=== PATIENT | female | born 1955 | race American Indian/Alaskan Native ===

== ENCOUNTER 2024-04-04 11:56 | Emergency (ER) | payer OTHER, SELFPAY ==
[2024-04-04 11:58] VITALS: BMI 26.5
[2024-04-04 12:05] VITALS: BP 134/88; PULSE 77; RESP 16; TEMP 36.9; O2SAT 96
--- NOTE | 2024-04-04 12:23 | XR_ITS ---
Examination: Fingers, left hand fourth and fifth fingers 3 views Technique: AP, oblique, lateral views left hand fourth and fifth fingers 3 views. Exam date and time: April 04, 2024 1255 hours INDICATIONS: Injury to the left hand fourth finger pain 4 days ago. FINDINGS: Prominent osteopenia 4 mm chip fracture volar base middle phalanx fourth digit without displacement IMPRESSION: 4 mm chip fracture volar base middle phalanx fourth digit
--- NOTE | 2024-04-04 12:23 | XR_ITS ---
Examination: Knee, left , 3 views Technique: Knee AP, lateral, oblique 3 views Date and time of exam: April 04, 2024 1255 hours INDICATIONS: Injury to the knee 4 days ago with knee pain. FINDINGS: Moderate osteopenia No fracture or dislocation Moderate knee effusion IMPRESSION: No fracture or dislocation
--- NOTE | 2024-04-04 13:45 | PD.EDLOWEX ---
Lower Extremity Injury RME/HPI General Chief Complaint: Extremity Injury, Lower Stated Complaint: L KNEE AND HAND PAIN S/P FALL Time Seen by Provider: 04/04/24 12:11 Source: patient Arrival date/time: 04/04/24 11:56 This is a 68y female here with co left knee pain and finger pain left hand. Reports that on thanksgiving, her plate fell out of her hand causing her to slip and subsequently fall onto to her left knee. Patient also contused her fourth and 5th digit of left hand. No other injuries reported. No loc, head or neck injuries. Limitations: no limitations Related Data Home Medications ?Medication ?Instructions ?Recorded ?Confirmed paroxetine HCl 40 mg tablet (Paxil) 40 mg PO QAM #0 tabs 12/12/13 11/22/23 ferrous sulfate 325 mg (65 mg 325 mg PO BID 08/12/23 11/22/23 iron) tablet metoprolol succinate 25 mg 25 mg PO DAILY 08/12/23 11/22/23 tablet,extended release 24 hr Previous Rx's ?Medication ?Instructions ?Recorded clopidogrel 75 mg tablet (Plavix) 75 mg PO QDAY #30 tabs 06/09/19 lisinopril 2.5 mg tablet 2.5 mg PO QDAY #30 tabs 06/09/19 metformin 500 mg tablet 500 mg PO BID #60 tabs 06/09/19 nitroglycerin 0.4 mg sublingual 0.4 mg buccal [id number] PRN chest 06/09/19 tablet pain #100 tabs aspirin 81 mg tablet,delayed 81 mg PO QDAY #30 tabs 11/23/23 release atorvastatin 80 mg tablet 80 mg PO HS 30 days #30 tabs 11/23/23 pantoprazole 40 mg tablet,delayed 40 mg PO QDAY #20 tabs 11/23/23 release Allergies Allergy/AdvReac Type Severity Reaction Status Date / Time No Known Drug Allergies Allergy Verified 11/21/23 23:56 Review of Systems Review of Systems Systems Reviewed: All systems reviewed, normal except as documented Narrative Review of Systems: Gen: No fever, no chills, no weight loss EYES: No discharge, no visual changes, no pain HEENT: No ear pain, no congestion, no sore throat PULM: No shortness of breath, no cough, no congestion CV: No chest pain, no dyspnea on exertion, no palpitations GI: No nausea, no vomiting, no diarrhea, no pain, no constipation : No frequency, no urgency,? no dysuria Musc/skel: No joint pain, no back pain Skin: No rash? Psyc: No hallucinations, no depression Heme/Lymph: No easy bleeding or bruising tendencies Neuro: No weakness, no headache ED Exam General Limitations: Present no limitations General appearance: Present alert and in no apparent distress Head Head exam: Present atraumatic Eye Eye exam: Present normal appearance, PERRL and EOMI ENT ENT exam: Present normal exam, normal oropharynx and mucous membranes moist Neck Neck exam: Present normal inspection, full ROM and trachea midline Chest Chest inspection: Present normal inspection and symmetric chest wall rise Respiratory Respiratory exam: Present normal lung sounds bilaterally Cardiovascular Cardiovascular exam: Present regular rate, normal rhythm and normal heart sounds Abdominal Exam Abdominal exam: Present soft and normal bowel sounds Extremities Exam Extremities exam: Present normal inspection and full ROM Back Exam Back exam: Present normal inspection and full ROM Neurological Exam Neurological exam: Present alert, oriented X3 and CN II-XII intact Psychiatric Psychiatric exam: Present normal affect and normal mood Skin Skin exam: Present warm, dry, intact and normal color Course Quality Measures none Orders Category Date Time Status XR finger LT min 2V Stat Exams 04/04/24 12:23 Completed XR knee LT 3V Stat Exams 04/04/24 12:23 Completed Vital Signs Vital signs: Vital Signs Temperature 98.5 F 04/04/24 12:05 Pulse Rate 77 04/04/24 12:05 Respiratory Rate 16 04/04/24 12:05 Blood Pressure 134/88 H 04/04/24 12:05 Pulse Oximetry (%) 96 04/04/24 12:05 Oxygen Delivery Method Room Air 04/04/24 12:05 Extremity Injury, Lower MDM Narrative MDM Narrative:: 68 y f evaluted for c/o slip and fall causing knee contusion and fracture of 4th digit left hand. Finger splints applied, patient wearing a knee brace. Advised to follow up with PCP for further fu ER precautions given. Patient data External records reviewed:: [facility] previous records Clinical information provided by:: patient Social determinants that could affect healthcare access:: none Patient has the following chronic illnesses:: no How is presenting disease/condition affected by chronic disease/condition?: no chronic disease Evaluation data The following diagnostics were reviewed and interpreted by me:: radiology exam(s) Lab and/or radiology exams considered but not ordered:: no Interpretation Summary: Examination: Knee, left , 3 views Technique: Knee AP, lateral, oblique 3 views Date and time of exam: April 04, 2024 1255 hours INDICATIONS: Injury to the knee 4 days ago with knee pain. FINDINGS: Moderate osteopenia No fracture or dislocation Moderate knee effusion IMPRESSION: No fracture or dislocation Examination: Fingers, left hand fourth and fifth fingers 3 views Technique: AP, oblique, lateral views left hand fourth and fifth fingers 3 views. Exam date and time: April 04, 2024 1255 hours INDICATIONS: Injury to the left hand fourth finger pain 4 days ago. FINDINGS: Prominent osteopenia 4 mm chip fracture volar base middle phalanx fourth digit without displacement IMPRESSION: 4 mm chip fracture volar base middle phalanx fourth digit Medications / Prescriptions Medications or Prescriptions considered but not ordered:: no Medication administrations:: no Consultations Consultation(s) initiated? (list below): No Diagnosis Extremity Injury, Lower Differential Diagnosis: ankle sprain and strain, acute internal derangement of knee, puncture wound of foot and other (finger sprain and knee pain) Most likely diagnosis given after review of the tests above:: Left knee sprain, finger fracture Admission Indicated Admission indicated?: not indicated Admission Request Was there a request for admission?: No Disposition Plan Disposition Plan: Discharge Discharge Attestation Discharge Attestation: The patient and all family members were given an opportunity to ask questions and understood the discharge instructions. Discharge instructions specifically effects, indications for sooner follow up or return to the emergency department, and the expected course of current diagnosis. Patient condition: Stable Discharge Plan Plan Patient Disposition: HOME (Self Care) Patient condition on transfer: Stable Prescriptions/Referrals Prescriptions/Med Rec: No Action paroxetine HCl [Paxil] 40 MG tablet 40 mg PO QAM Qty: 0 clopidogrel [Plavix] 75 mg Tablet 75 mg PO QDAY Qty: 30 0RF Hold Instructions: Resume on 08/13/23. nitroglycerin 0.4 mg tablet, sublingual 0.4 mg BUCCAL [id number] PRN (Reason: chest pain) Qty: 100 0RF Rx Instructions: Please seek immediate medical attention if no alleviation of chest pain. metformin 500 mg tablet 500 mg PO BID Qty: 60 0RF Hold Instructions: Resume on 04/12/24. lisinopril 2.5 mg tablet 2.5 mg PO QDAY Qty: 30 0RF atorvastatin 80 mg tablet 80 mg PO HS 30 Days Qty: 30 3RF aspirin 81 mg tablet,delayed release (DR/EC) 81 mg PO QDAY Qty: 30 3RF pantoprazole 40 mg tablet,delayed release (DR/EC) 40 mg PO QDAY Qty: 20 0RF ferrous sulfate 325 mg (65 mg iron) Tablet 325 mg PO BID metoprolol succinate 25 mg Tablet Extended Release 24 Hr 25 mg PO DAILY Referrals: Good Juarez MD [Primary Care Provider] - In 1 week Problem List Clinical Impression: Contusion of knee, left, Finger fracture, left, Fall from slipping Patient/Caregiver Discharge Instructions Discharge Activity: activity as tolerated Education Materials: ED Fracture, Finger, Closed, ED Knee Sprain Additional Instructions: - Is very important that you follow-up with your primary doctor in 48 hours for follow-up care. Your x-ray does demonstrate a fracture of your finger, keep the splint as directed. -Keep knee brace on. Return to the emergency department with any worsening symptoms change in condition. Print Language: Welsh Stand Alone Forms: Milady Award Info., Patient Portal Info Letter Attestation Attestation The patient was seen by the midlevel practitioner. I, the co-signing physician, was present during the entire ER visit. While I did not physically examine the patient, I was available for consultation as needed.
== END 2024-04-04 14:31 | disposition home or self-care (01) ==
PROVIDERS: Emergency Provider Emergency Medicine; PCP Internal Medicine
DX: S62.655A Nondisplaced fracture of middle phalanx of left ring finger, initial encounter for closed fracture (principal); S80.02XA Contusion of left knee, initial encounter; W01.0XXA Fall on same level from slipping, tripping and stumbling without subsequent striking against object, initial encounter
CPT/HCPCS: 73140; 73562; 99283

== ENCOUNTER → 2024-08-10 | Outpatient (CLI) | payer OTHER, SELFPAY ==
[2024-08-10 09:43] LABS: Cardiac Risk Estimate 3.1 RATIO (3.7-5.6); Cholesterol 153 mg/dL (132-200); HDL Cholesterol 50 mg/dL (40-60); LDL Cholesterol,Calculated 73 mg/dL (0-130); Triglycerides 152 mg/dL (30-150)
[2024-08-10 10:11] LABS: Vitamin B12 311 pg/mL (211-911); Vitamin D 25 Hydroxy Total 27.7 ng/mL (7.3-40.2)
== END | disposition home or self-care (01) ==
LOC: COPL 08:03
PROVIDERS: PCP Internal Medicine
DX: E11.42 Type 2 diabetes mellitus with diabetic polyneuropathy (principal)
CPT/HCPCS: 36415; 80061; 82306; 82607

== ENCOUNTER → 2024-08-24 | Outpatient (CLI) | payer OTHER, SELFPAY ==
[2024-08-24 09:36] LABS: Basophils # (Auto) 0.1 Thou/mm3 (0.0-0.2); Basophils % (Auto) 1 % (0-2.5); Eosinophils # (Auto) 0.8 Thou/mm3 (0.0-0.5); Eosinophils % (Auto) 10 % (0-10); Hematocrit 44.5 % (36.0-46.0); Immature Granulocytes % (Auto) 1 % (0-0); Immature Granulocytes Auto 0.05 Thou/mm3 (0.00-0.00); Lymphocytes # (Auto) 1.7 Thou/mm3 (1.0-4.8); Lymphocytes % (Auto) 21 % (10-50); Mean Corpuscular HGB Conc 33.7 g/dl (31.0-37.0); Mean Corpuscular Hemoglobin 28.5 pg (25.0-35.0); Mean Corpuscular Volume 84 fL (80-100); Monocytes # (Auto) 0.5 Thou/mm3 (0.0-0.8); Monocytes % (Auto) 6 % (0-12); Neutrophils % (Auto) 62 % (37-80); Nucleated Red Blood Cell % 0 /100 WBC (0); Platelet Count 308 Thou/mm3 (140-440); RDW Standard Deviation 42.5 fL (36.4-46.3); Red Blood Count 5.27 Miln/mm3 (4.00-5.20); White Blood Count 8.1 Thou/mm3 (3.6-11.0)
[2024-08-24 09:55] LABS: Alanine Aminotransferase 10 U/L (10-49); Albumin, Serum 4.2 gm/dL (3.4-4.8); Albumin/Globulin Ratio 1.8 (1.2-2.2); Alkaline Phosphatase 72 U/L (46-116); Anion Gap 8 (7-16); Aspartate Amino Transferase 15 U/L (0-34); BUN/Creatinine Ratio 14 Ratio (12-20); Bilirubin,Total 0.5 mg/dL (0.3-1.2); Blood Urea Nitrogen 10 mg/dL (9-23); Carbon Dioxide 27.4 mMol/L (20.0-31.0); Cardiac Risk Estimate 2.7 RATIO (3.7-5.6); Chloride 109 mMol/L (98-107); Cholesterol 142 mg/dL (132-200); Creatinine (Component) 0.7 mg/dL (0.6-1.3); Globulin 2.4 gm/dL (2.3-3.5); Glucose 136 mg/dL (74-106); HDL Cholesterol 52 mg/dL (40-60); LDL Cholesterol,Calculated 66 mg/dL (0-130); Osmolality,Calculated 287 (275-295); Potassium 3.8 mMol/L (3.4-5.1); Sodium 144 mMol/L (136-145); Thyroid Stimulating Hormone 1.14 uIU/mL (0.55-4.78); Total Protein 6.6 gm/dL (5.7-8.2); Triglycerides 120 mg/dL (30-150); eGFR > 60 See Note
[2024-08-24 09:56] LABS: Creatinine MALB Rnd Ur 67 mg/dL (30-125); Microalbumin Creat Ratio 10 mg/gCrea (<30); Microalbumin, Random Urine 7 mg/L (0-300)
[2024-08-24 10:22] LABS: Syphilis Nonreactive (Nonreactive)
[2024-08-24 10:26] LABS: Hepatitis A Antibody IgM Non Reactive (Non React); Hepatitis B Core Antibody IgM Non Reactive (Non React); Hepatitis B Surface Antigen Non Reactive (Non React); Hepatitis C Antibody Non Reactive (Non React)
[2024-08-24 16:43] LABS: Chlamydia trachomatis PCR Negative (Not Detect); Neisseria Gonorrhoeae DNA PCR Negative (Not Detect); Trichomonas Negative (Negative)
[2024-08-29 06:46] LABS: HIV Ag/Ab, 4th Gen NON-REACTIVE
== END | disposition home or self-care (01) ==
LOC: COPL 08:11
PROVIDERS: PCP Internal Medicine
DX: Z00.00 Encounter for general adult medical examination without abnormal findings (principal); E11.9 Type 2 diabetes mellitus without complications; Z11.3 Encounter for screening for infections with a predominantly sexual mode of transmission; Z11.59 Encounter for screening for other viral diseases; Z79.899 Other long term (current) drug therapy
CPT/HCPCS: 36415; 80053; 80061; 80074; 82043; 82570; 84443; 85025; 86780; 87389; 87491; 87591; 87661

== ENCOUNTER 2024-11-12 12:16 | Inpatient (IN) | payer OTHER, MEDICARE, SELFPAY ==
[2024-11-12] VITALS (7 sets, daily range): BP systolic 134–149; BP diastolic 89–114; PULSE 74–98; RESP 14–90; TEMP 36.2–36.9; O2SAT 92–100; BMI 29.5
--- NOTE | 2024-11-12 | XR_ITS ---
Examinations: MRI Brain without intravenous contrast. MRI brain with intravenous contrast MRA brain with intravenous contrast. MRA brain without intravenous contrast MRA neck with intravenous contrast Date and time of exam: November 12, 2024, 1557 hrs. Indications: Difficulty with balance, altered mental status, weakness in the left face and upper extremity today Technique: Multiple axial and sagittal images of the brain have been obtained Siemens high-resolution 1.5 Esther short bore scanner is utilized. Sagittal sections, T1-weighted, TR 500, TE 14 Axial sections proton density and T2-weighted, TR 3,000, TE 34, TR 3,000, TE 91 Inversion recovery axial images, TR 9,260, TE 111, TI 2,500 Diffusion weighted images, axial sections, TR 4,800, TE 128, B value 1,000 Axial sections, ADC map, TR 4,800, TE 128. Contrast images have been obtained post intravenous 13 cc Gadolinium. T1-weighted axial and coronal images post contrast have been obtained. Angiographic images of neck and brain are obtained pre and post contrast. 3-D post processing performed, including brain, extracranial neck arterial maximum intensity projections Findings: Sellaturcica is not enlarged. The optic chiasm and infundibular stalk are not remarkable. Prepontine and interpeduncular cisterns are not enlarged. No localized enlargement of the medulla or ion. Fourth ventricle and cerebellar tonsils normal in position. Subacute hemorrhage is not seen. Fourth ventricle is midline. Mass in the cerebellopontine angle region is not evident. 7th and 8th nerve complexes exhibits symmetry. Globes are symmetrical with no retro-orbital mass. Increased white matter signal prominent Diffusion-weighted images demonstrate5 mm focus of restricted diffusion in the right basal ganglia, diffusion image 13. Mass-effect upon the ventricular system is not identified. Abnormal contrast enhancement is not seen. MRA brain carotid images no significant carotid stenoses. Significant irregularity posterior cerebral artery branches Impression: 5 mm focus of restricted diffusion in the right basal ganglia without definite signal deficit on the ADC map, recommend consultation by neurology, correlation with clinical findings to assess whether this represents a small acute infarct
--- NOTE | 2024-11-12 12:19 | PD.EDNEURO ---
Neuro Symptoms Deficit-RME/HPI General Chief Complaint: Neuro Symptoms/Deficit Stated Complaint: POSSIBLE STROKE Time Seen by Provider: 11/12/24 12:22 Arrival date/time: 11/12/24 12:16 Limitations: no limitations RME / HPI RME / HPI Narrative: DR. ARMIJO MAIN ED EVALUATION: 69 year old female with past medical history significant for TIA 11/2023, hypertension, hyperlipidemia, DM 2, and CAD presents to the Emergency Department [facility] with complaints of facial droop and generalized weakness since 10 PM yesterday. Patient also had trouble standing/ keeping balance. No actual one-sided weakness. No other symptoms reported. Related Data Home Medications ?Medication ?Instructions ?Recorded ?Confirmed ferrous sulfate 325 mg (65 mg 325 mg PO BID 08/12/23 11/12/24 iron) tablet empagliflozin 10 mg tablet 10 mg PO QAM 11/12/24 11/12/24 (Jardiance) lisinopril 20 mg tablet 20 mg PO DAILY 11/12/24 11/12/24 metformin 1,000 mg tablet 1,000 mg PO BID 11/12/24 11/12/24 metoprolol succinate 50 mg 50 mg PO DAILY 11/12/24 11/12/24 tablet,extended release 24 hr paroxetine HCl 30 mg tablet 30 mg PO DAILY 11/12/24 11/12/24 Previous Rx's ?Medication ?Instructions ?Recorded clopidogrel 75 mg tablet (Plavix) 75 mg PO QDAY #30 tabs 06/09/19 nitroglycerin 0.4 mg sublingual 0.4 mg buccal [id number] PRN chest 06/09/19 tablet pain #100 tabs atorvastatin 80 mg tablet 80 mg PO HS 30 days #30 tabs 11/23/23 pantoprazole 40 mg tablet,delayed 40 mg PO QDAY #20 tabs 11/23/23 release Allergies Allergy/AdvReac Type Severity Reaction Status Date / Time No Known Drug Allergies Allergy Verified 11/12/24 12:46 Review of Systems Review of Systems Systems Reviewed: All systems reviewed, normal except as documented Past Medical History Past Medical History CARDIAC: Positive Cardiac Disorders, Myocardial Infarction (2022), Hypercholesterolemia, Cellulitis and Hypertension REPRODUCTIVE: Positive Previous Pregnancies (4 children) MUSCULOSKELETAL: Positive Musculoskeletal Disorders (broken right shoulder 2 years ago never had surgery) and Fractures ENDOCRINE: Positive Endocrine Disorders and Diabetes Mellitus Type 2 HEMATOLOGIC: Positive Blood Disorders and Anemia PSYCHO/SOCIAL: Positive Recreational Drug Use (cocaine, heroin, meth), Depression and Anxiety OTHER HISTORY: Positive Hospitalization, Falls, Blood Transfusions, MRSA, Chicken Pox, Measles, Mumps and Rubella ([place] Measles) Family History FAMILY HISTORY: Positive Family Psychiatric Problems (bipolar disorder (mom)), Family Cardiac Disorders (mom (heart attack)) and Family Surgery (heart surgery (mom)) Surgical History SURGICAL: Positive Coronary Stent (4 stents), Cardiac Catheterization and Section Social History SMOKING STATUS: Never smoker SECOND HAND EXPOSURE: Yes SUBSTANCE USE: does not use ALCOHOL: Never ED Exam General Limitations: Present no limitations General appearance: Present alert and in no apparent distress Head Head exam: Present atraumatic, normocephalic and normal inspection Eye Eye exam: Present normal appearance, PERRL and EOMI ENT ENT exam: Present normal exam, normal oropharynx and mucous membranes moist Neck Neck exam: Present normal inspection, full ROM and trachea midline Chest Chest inspection: Present normal inspection and symmetric chest wall rise Respiratory Respiratory exam: Present normal lung sounds bilaterally Cardiovascular Cardiovascular exam: Present regular rate, normal rhythm and normal heart sounds Abdominal Exam Abdominal exam: Present soft and normal bowel sounds Extremities Exam Extremities exam: Present normal inspection and full ROM Back Exam Back exam: Present normal inspection and full ROM Neurological Exam Neurological exam: Present alert, oriented X3, CN II-XII intact and other (left facial droop; gait not tested; forehead wrinkle was normal) Expanded Neurological Exam Patient oriented to: Present person, place and time Motor strength - LUE: 5/5 Motor strength - RUE: 5/5 Motor strength - LLE: 5/5 Motor strength - RLE: 5/5 Psychiatric Psychiatric exam: Present normal affect and normal mood Skin Skin exam: Present warm, dry, intact and normal color Course Quality Measures none Orders Category Date Time Status Bedside Blood Glucose NOW Care 11/12/24 12:22 Active COVID-19 Screening Questionnaire NOW Care 11/12/24 13:05 Active Scrap Bunch Maker NOW Care 11/12/24 12:22 Active Continuous Pulse Oximetry NOW Care 11/12/24 12:22 Completed Decision to Admit X1 Care 11/12/24 13:04 Completed EKG (ED ONLY) *Do not use* NOW Care 11/12/24 12:22 Completed In and Out Catheter NEEDED Care 11/12/24 12:22 Active Insert IV NOW Care 11/12/24 12:22 Completed NIH Stroke Scale now Care 11/12/24 12:22 Active NPO NOW Care 11/12/24 12:22 Active Neuro Check Q15MIN Care 11/12/24 12:22 Active Nurse Swallow Screen x1 Care 11/12/24 12:22 Active Consult to Neurology / Tele-Neurology Routine Cons 11/12/24 12:[address] angio stroke protocol Stat Exams 11/12/24 12:[address] stroke protocol Stat Exams 11/12/24 12:22 Completed EKG (ED Only) Stat Exams 11/12/24 12:22 Draft Alcohol, Blood Medical Stat Lab 11/12/24 12:25 Completed B-Type Natriuretic Peptide Stat Lab 11/12/24 12:25 Completed CBC Stat Lab 11/12/24 12:25 Completed Comprehensive Metabolic Panel Stat Lab 11/12/24 12:25 Completed Drug Screen,Urine Stat Lab 11/12/24 12:22 Ordered Lipid Panel Stat Lab 11/12/24 12:25 Completed Magnesium Stat Lab 11/12/24 12:25 Completed Partial Thromboplastin Time Stat Lab 11/12/24 12:25 Completed Prothrombin Time with INR Stat Lab 11/12/24 12:25 Completed Thyroid Stimulating Hormone Stat Lab 11/12/24 12:25 Completed Troponin I Stat Lab 11/12/24 12:25 Completed Urinalysis Stat Lab 11/12/24 12:22 Ordered Urine Culture Stat Lab 11/12/24 12:22 Ordered Aspirin [Ecotrin] Med 11/12/24 12:37 Discontinued 81 mg PO X1 ONE Ondansetron Inj [Zofran Inj] Med 11/12/24 12:22 Active 4 mg IVP Q4HR PRN Sodium Chloride 0.9% 1000 ml [Ns] 1,000 ml Med 11/12/24 12:30 Active IV Q10H Oxygen Delivery NOW RT 11/12/24 12:22 Active Vital Signs Vital signs: Vital Signs Pulse Rate 98 11/12/24 12:16 Respiratory Rate 20 11/12/24 12:16 Blood Pressure 136/89 H 11/12/24 12:16 Pulse Oximetry (%) 95 11/12/24 12:16 Oxygen Delivery Method Room Air 11/12/24 12:16 Neuro Symptoms / Deficit MDM Narrative MDM Narrative:: I, kAila Cai am scribing for and in the presence of Dr. Armijo. Patient data External records reviewed:: [facility] previous records and EMS form Clinical information provided by:: patient and EMS Social determinants that could affect healthcare access:: none Patient has the following chronic illnesses:: TIA 11/2023, hypertension, hyperlipidemia, DM 2, and CAD. How is presenting disease/condition affected by chronic disease/condition?: exacerbated by Evaluation data The following diagnostics were reviewed and interpreted by me:: lab results, radiology exam(s) and EKG tracing(s) Lab and/or radiology exams considered but not ordered:: none Interpretation Summary: My interpretation: EKG performed at 1246 hours, sinus rhythm, rate 94, no acute changes, no STEMI Procedure(s): CT stroke protocol Accession Number(s): [id number] cc: Vidal Armijo MD; Alvaro Sanz MD~ Examination: CT brain head without contrast. 2-D sagittal coronal reconstructions Date and time of exam 11/12/2024 1233 pm administered. 7 mm 12,025 mm of the abdomen have been CTDI: vol (mGy):59 DLP: (mGycm):1265 Technique: Multiple CT axial sections of the brain have been obtained, 5 mm slice thickness. Contrast has not been administered. 2-D sagittal, coronal reconstructions have been obtained Low dose protocols were performed. One or more of the following dose reduction techniques were used; automated exposure control, adjustment of the mA and/or KV according to patient size, use of iterative reconstruction technique. Findings: No significant ventricular enlargement. Intra-axial or extra-axial hemorrhage density is not seen. No mass effect or midline shift Basal cisterns are not remarkable. Fourth ventricle is midline. Cranial vault intact. Impression: Negative for acute hemorrhage, mass effect or midline shift Dictated By: Alvaro Sanz MD Procedure(s): CT angio stroke protocol Accession Number(s): [id number] cc: Vidal Armijo MD; Good Juarez MD; Alvaro Sanz MD~ Examination: CTA carotids with intravenous contrast CTA brain, head with intravenous contrast. 2-D sagittal, coronal reconstructions. 3-D reconstructions. Exam date and time: 43 hours Indications: Stroke alert, onset focal deficits today. CTDI: vol (mGy) 25 DLP: (mGycm) : 37 Technique: Multiple CTA axial brain, head carotid images post intravenous contrast injection 75 cc, Isovue-370. 2-D sagittal, coronal reconstructions. 3-D reconstructions, 3-D post processing including vascular maximum intensity projection images. Low dose protocols were performed. One or more of the following dose reduction techniques were used; automated exposure control, adjustment of the mA and/or KV according to patient size, use of iterative reconstruction technique. Findings: No significant common carotid carotid bifurcation or internal carotid artery stenoses Dominant vertebral artery in the neck with no critical stenoses Cranial vertebral arteries basilar artery and posterior cerebral artery branches do fill There appears to be significant stenosis of the left posterior cerebral artery and distention P 2 P 3 segments Middle cerebral anterior cerebral arteries fill with no occlusions Impression: No significant neck arterial stenoses No cerebral large vessel arterial occlusions or thrombus Dictated By: Alvaro Sanz MD Medications / Prescriptions Medications or Prescriptions considered but not ordered:: none Medication administrations:: Medication Administration History Acetaminophen (Acetaminophen 325 Mg Tablet) 650 mg PO Q6HR PRN PRN Reason: pain, headache Stop: 12/12/24 13:53 Aspirin (Aspirin Ec 81 Mg Tabec) 81 mg PO DAILY [facility] Stop: 12/13/24 08:59 Atorvastatin Calcium (Atorvastatin Calcium 20 Mg Tablet) 80 mg PO HS [facility] [place] Stop: 12/12/24 20:59 Clopidogrel Bisulfate (Clopidogrel Bisulfate 75 Mg Tablet) 75 mg PO DAILY [facility] [place] Stop: 12/12/24 13:59 Last Admin: 11/12/24 14:19 Dose: 75 mg Documented By: BEVERLEY Dextrose (Dextrose 50%-Water Inj 50 Ml Syringe) 25 ml IV Q15MIN PRN PRN Reason: BG 50-70 responsive npo pt Stop: 12/12/24 13:51 Dextrose (Dextrose 50%-Water Inj 50 Ml Syringe) 50 ml IV Q15MIN PRN PRN Reason: BG <50 OR BG <70 & pt unresponsive Stop: 12/12/24 13:51 Enoxaparin Sodium (Enoxaparin Sod Inj 40 Mg/0.4 Ml Syringe) 40 mg SC QDAY [facility] [place] Stop: 11/26/24 13:44 Last Admin: 11/12/24 14:00 Dose: 40 mg Documented By: [facility] Comments: would not scan Glucagon (Glucagon Inj 1 Mg Vial) 1 mg IM Q15MIN PRN PRN Reason: BG <70, and no IV access Hydralazine HCl (Hydralazine Inj 20 Mg/Ml Vial) 10 mg IVP Q8HR PRN PRN Reason: SBP > 180 Stop: 12/12/24 13:50 Sodium Chloride (Ns) 1,000 mls @ 100 mls/hr IV Q10H [facility] [place] Stop: 12/12/24 12:29 Last Admin: 11/12/24 13:05 Dose: 100 mls/hr Documented By: MM Magnesium Sulfate (Magnesium Sulfate Ivpb) 4 gm in 50 mls @ 12.5 mls/hr IV X1 ONE Stop: 11/12/24 19:27 Insulin Human Lispro (Insulin Lispro (Admelog) 1 Unit/0.01 Ml Unit) 0 unit SC AC [facility]; Protocol Stop: 12/12/24 16:59 Ondansetron HCl (Ondansetron Inj 2 Mg/Ml Inj 2 Ml) 4 mg IVP Q4HR PRN PRN Reason: NAUSEA OR VOMITING Stop: 12/12/24 12:21 Pantoprazole Sodium (Pantoprazole 40 Mg Tablet) 40 mg PO DAILY [facility] Stop: 12/12/24 15:29 Sennosides (Senna Tablet) 1 tab PO QDAY PRN; Protocol PRN Reason: constipation Stop: 12/12/24 13:35 Discontinued Medications Aspirin (Aspirin Ec 81 Mg Tabec) 81 mg PO X1 ONE Stop: 11/12/24 12:38 Last Admin: 11/12/24 13:06 Dose: 81 mg Documented By: C Comments: see nurse note Potassium Chloride (Potassium Chloride 10% 20 Meq/15 Ml Udc) 40 meq GT X1 ONE Stop: 11/12/24 15:25 see above Consultations Consultation(s) initiated? (list below): Yes Consultation #1 (Physician, Specialty, Details): Discussed test HPI, PMHx, lab, radiology results and/or management with resident working with the hospitalist. Will admit for further evaluation and management. Accepts patient for admission. Time: 13:20 Diagnosis Neuro Differential Diagnosis: subarachnoid hemorrhage, cerebrovascular accident and transient cerebral ischemia Most likely diagnosis given after review of the tests above:: CVA Admission Indicated Admission indicated?: indicated Admission Request Was there a request for admission?: Yes Admission Attestation Admission request attestation: Discussed case with [] from Hospitalist service regarding admission. Discussed patients ED course, exam findings, labs, and radiology results. The Hospitalist [agrees,declines] to accept the patient for admission. Disposition Plan Disposition Plan: Admit Discharge Plan Plan Patient Disposition: Admit Acute Care w/in Hospital Problem List Clinical Impression: CVA (cerebrovascular accident)
--- NOTE | 2024-11-12 12:20 | PC.NURSE ---
pt arrived at 1216 by ambulance with c/o generalized weakness. pt with left side facial drroop s/p fall at 0400 today and i just laid on the ground with the cat until my roommate woke up. Pt last normal at 2200 last night. Pt is on eliis
--- NOTE | 2024-11-12 12:22 | XR_ITS ---
Examination: CTA carotids with intravenous contrast CTA brain, head with intravenous contrast. 2-D sagittal, coronal reconstructions. 3-D reconstructions. Exam date and time: 43 hours Indications: Stroke alert, onset focal deficits today. CTDI: vol (mGy) 25 DLP: (mGycm) : 37 Technique: Multiple CTA axial brain, head carotid images post intravenous contrast injection 75 cc, Isovue-370. 2-D sagittal, coronal reconstructions. 3-D reconstructions, 3-D post processing including vascular maximum intensity projection images. Low dose protocols were performed. One or more of the following dose reduction techniques were used; automated exposure control, adjustment of the mA and/or KV according to patient size, use of iterative reconstruction technique. Findings: No significant common carotid carotid bifurcation or internal carotid artery stenoses Dominant vertebral artery in the neck with no critical stenoses Cranial vertebral arteries basilar artery and posterior cerebral artery branches do fill There appears to be significant stenosis of the left posterior cerebral artery and distention P 2 P 3 segments Middle cerebral anterior cerebral arteries fill with no occlusions Impression: No significant neck arterial stenoses No cerebral large vessel arterial occlusions or thrombus
--- NOTE | 2024-11-12 12:22 | EKG_ITS ---
[facility] Test Date: 2024-11-12 Pat Name: CHERELLE MEDRANO Department: Room: - Gender: Female [facility] Dentist: : 1955 Requested By: Vidal Day Order Number: [id number] Reading MD: Vidal Day Measurements Intervals [place] Rate: 94 P: 27 [place]: 139 QRS: -60 QRSD: 93 T: 200 QT: 357 QTc: 448 Interpretive Statements SINUS RHYTHM PATTERN CONSISTENT WITH PULMONARY DISEASE INFERIOR MYOCARDIAL INFARCTION , OF INDETERMINATE AGE [40+ ms Q WAVE AND/OR ST/T ABNORMALITY IN II/aVF] MODERATE T-WAVE ABNORMALITY, CONSIDER ANTEROLATERAL ISCHEMIA [-0.1+ mV T-WAVE IN V3-V6] Compared to ECG 11/21/2023 20:22:22 Myocardial infarct finding now present Possible ischemia now present T-wave abnormality still present /store/S0/[id number]/ecg/[id number].pdf
--- NOTE | 2024-11-12 12:22 | XR_ITS ---
Examination: CT brain head without contrast. 2-D sagittal coronal reconstructions Date and time of exam 11/12/2024 1233 pm administered. 7 mm 12,025 mm of the abdomen have been CTDI: vol (mGy):59 DLP: (mGycm):1265 Technique: Multiple CT axial sections of the brain have been obtained, 5 mm slice thickness. Contrast has not been administered. 2-D sagittal, coronal reconstructions have been obtained Low dose protocols were performed. One or more of the following dose reduction techniques were used; automated exposure control, adjustment of the mA and/or KV according to patient size, use of iterative reconstruction technique. Findings: No significant ventricular enlargement. Intra-axial or extra-axial hemorrhage density is not seen. No mass effect or midline shift Basal cisterns are not remarkable. Fourth ventricle is midline. Cranial vault intact. Impression: Negative for acute hemorrhage, mass effect or midline shift
[2024-11-12 12:42] LABS: Basophils # (Auto) 0.1 Thou/mm3 (0.0-0.2); Basophils % (Auto) 0 % (0-2.5); Eosinophils # (Auto) 0.0 Thou/mm3 (0.0-0.5); Eosinophils % (Auto) 0 % (0-10); Hematocrit 49.4 % (36.0-46.0); Hemoglobin 16.9 g/dL (12.0-16.0); Immature Granulocytes Auto 0.07 Thou/mm3 (0.00-0.00); Lymphocytes # (Auto) 0.9 Thou/mm3 (1.0-4.8); Lymphocytes % (Auto) 7 % (10-50); Mean Corpuscular HGB Conc 34.2 g/dl (31.0-37.0); Mean Corpuscular Hemoglobin 28.6 pg (25.0-35.0); Mean Corpuscular Volume 84 fL (80-100); Monocytes # (Auto) 0.9 Thou/mm3 (0.0-0.8); Monocytes % (Auto) 7 % (0-12); Neutrophils # (Auto) 11.0 Thou/mm3 (1.8-7.7); Neutrophils % (Auto) 86 % (37-80); Nucleated Red Blood Cell # 0.00 Thou/mm3 (0.00-0.00); Nucleated Red Blood Cell % 0 /100 WBC (0); Platelet Count 325 Thou/mm3 (140-440); RDW Standard Deviation 40.8 fL (36.4-46.3); Red Blood Count 5.91 Miln/mm3 (4.00-5.20); White Blood Count 12.8 Thou/mm3 (3.6-11.0)
[2024-11-12 12:57] LABS: INR 1.1 (0.9-1.3); Partial Thromboplastin Time 27.3 Seconds (22.0-36.0); Prothrombin Time 11.5 Seconds (9.0-12.2)
--- NOTE | 2024-11-12 13:04 | PC.NURSE ---
DR. ARMIJO INFORMED THAT PER HOSPITAL PROTOCOL PT HAS FAILED SWALLOW EVAL DUE TO FACIAL DROOP, AND NURSE IS NOT SUPPOSED TO GIVE ANYTHING UNTIL SPEECH THERPY EVAL COMPLETED. PER DR. ARMIJO, GO AHEAD AND SEE HOW PT DOES SWALLOWING AND GIVE ASPIRIN IF SWALLOWS OKAY
[2024-11-12 13:05] LABS: Alanine Aminotransferase 13 U/L (10-49); Albumin, Serum 4.4 gm/dL (3.4-4.8); Albumin/Globulin Ratio 1.7 (1.2-2.2); Alcohol, Blood Medical < 3.0 mg/dL (0-10.0); Alkaline Phosphatase 74 U/L (46-116); Anion Gap 11 (7-16); Aspartate Amino Transferase 21 U/L (0-34); BUN/Creatinine Ratio 10 Ratio (12-20); Bilirubin,Total 0.6 mg/dL (0.3-1.2); Blood Urea Nitrogen 7 mg/dL (9-23); Calcium 9.5 mg/dL (8.3-10.6); Calcium (Corrected) 9.5 mg/dL (8.5-10.1); Carbon Dioxide 24.8 mMol/L (20.0-31.0); Chloride 109 mMol/L (98-107); Creatinine (Component) 0.7 mg/dL (0.6-1.3); Estimated Creatinine Clearance 66.4 mL/min (>60); Globulin 2.6 gm/dL (2.3-3.5); Glucose 152 mg/dL (74-106); Magnesium 1.8 mg/dL (1.6-2.6); Osmolality,Calculated 289 (275-295); Potassium 3.5 mMol/L (3.4-5.1); Sodium 145 mMol/L (136-145); Total Protein 7.0 gm/dL (5.7-8.2); Troponin I 0.025 ng/mL (0.0-0.045); eGFR > 60 See Note
[2024-11-12] MEDS: SODIUM CHLORIDE 0.9% 1000 ML 1,000 ML 100 ML IV (13:05)
[2024-11-12] MEDS: ASPIRIN EC 81 MG TABEC PO (13:06)
--- NOTE | 2024-11-12 13:06 | PC.NURSE ---
PT GIVEN 5 ML'S WATER AND SWALLOWED WITHOUT DIFFICULTY. PT ABLE TO TAKE SIP WATER WITH STRAW WITHOUT DIFFICULTY. ASPIRIN GIVEN AND PT SWALLOWED WITHOUT DIFFICULTY.
[2024-11-12 13:17] LABS: B-Type Natriuretic Peptide 136 pg/mL (0-100)
--- NOTE | 2024-11-12 13:41 | ECHO_ITS ---
Transthoracic Echo Report Ht (in): 60 Wt (lb): 151 Exam Location: Echo Lab Status: Emergency Insurance Claims Processor: Sandrita Rene Indications: Procedure Performed: BP: 150 / 88 HR: 77 Technical Quality: Technically difficult study MEASUREMENTS (Male / Female) Normal Values 2D ECHO LV Diastolic Diameter PLAX 4.3 cm 4.2 - 5.9 / 3.9 - 5.3 cm LV Systolic Diameter PLAX 3.2 cm IVS Diastolic Thickness 1.1 cm 0.6 - 1.0 / 0.6 - 0.9 cm LVPW Diastolic Thickness 1.0 cm 0.6 - 1.0 / 0.6 - 0.9 cm LV Relative Wall Thickness 0.5 LVOT Diameter 1.8 cm Aortic Root Diameter 2.2 cm LA Systolic Diameter LX 3.0 cm 3.0 - 4.0 / 2.7 - 3.8 cm LV Ejection Fraction MOD 2C 53.8 % LV Cardiac Index MOD 2C 1319.1 cm?/min?m? LV Ejection Fraction 2C AL 55.4 % LV Cardiac Index 2C AL 1354.9 cm?/min?m? LA Volume Index 32.4 cm?/m? 16 - 28 cm?/m? DOPPLER AV Peak Velocity 138.5 cm/s AV Peak Gradient 7.7 mmHg AV Mean Gradient 3.0 mmHg AV Velocity Time Integral 31.1 cm LVOT Peak Velocity 92.6 cm/s LVOT Peak Gradient 3.4 mmHg LVOT Velocity Time Integral 18.5 cm LVOT Cardiac Index 2097.9 cm?/min?m? AV Area Cont Eq vti 1.5 cm? AV Area Cont Eq pk 1.7 cm? MV Area PHT 2.9 cm? MR Peak Velocity 254.0 cm/s MR Peak Gradient 25.8 mmHg Mitral E Point Velocity 67.4 cm/s Mitral A Point Velocity 86.3 cm/s Mitral E to A Ratio 0.8 LV E' Lateral Velocity 6.7 cm/s Mitral E to LV E' Lateral Ratio 10.0 LV E' Septal Velocity 5.7 cm/s Mitral E to LV E' Septal Ratio 11.9 PV Peak Velocity 71.9 cm/s PV Peak Gradient 2.1 mmHg FINDINGS Left Ventricle Normal left ventricular size, wall thickness, systolic function with no obvious regional wall motion abnormalities.there is grade I diastolic dysfunction of the left ventricle (impaired relaxation pattern). The ejection fraction is visually estimated at 55%. Right Ventricle The right ventricle is normal in size and systolic function. Possible Hassan's sign present. Left Atrium The left atrium is normal by two-dimensional, color flow and Doppler imaging with no structural abnormalities, no thrombus formation present. Right Atrium The right atrium is normal by two-dimensional imaging, color flow and Doppler imaging with no structural abnormalities, no thrombus formation present. Atrial Septum The interatrial septum appears normal with no evidence of a shunt. Aorta The aorta is normal by two-dimensional, color flow and Doppler interrogation. Mitral Valve The mitral valve is normal by two-dimensional, color flow and Doppler interrogation. Mild mitral regurgitation. Aortic Valve The aortic valve is trileaflet and normal by two-dimensional, color flow and Doppler interrogation. There is no significant aortic valve regurgitation. Tricuspid Valve The tricuspid valve is normal by two-dimensional, color flow and Doppler interrogation. There is trace tricuspid valve regurgitation. Pulmonic Valve The pulmonic valve is not well visualized. There is no significant pulmonic valve regurgitation. Vessels The pulmonary artery appears normal. The inferior vena cava pulmonary and hepatic veins appear normal. Pericardium The pericardium is normal by two-dimensional imaging. There is no significant pericardial effusion. CONCLUSIONS Indication: Stroke rule out Negative bubble study. Normal LV size and wall thickness. Estimated EF at 55%. The RV is normal in size and systolic function. Trace mitral and trace tricuspid regurgitation Dinora Lim (Electronically Signed) Final Date: 13 November 2024 13:16
--- NOTE | 2024-11-12 13:58 | ESHP_ITS ---
Documentation for date of: 11/12/24 HPI History of Present Illness History of present illness: Ms. Ericka rojas is a 69-year-old woman with past medical history significant for TIA in November 2023, CAD status post stent (on ASA, Plavix) HTN, HLD, T2DM not on on insulin, depression and a chronic history of dizziness who presented to the emergent department today for left left face and left upper extremity weakness. Last night at 10 PM patient noted to have left facial droop, left-sided upper extremity weakness, and balance difficulty. She decided to go to bed and awoke to use the restroom at which point she had ground-level fall without head strike. She returned to bed and awoke a second time where she fell again ground-level without head strike, at which point she was brought to the emergency department. Patient notes that her speech is different from baseline. She states that her left arm moves slowly which is the same as per her baseline however she reports feeling weak of her left upper extremity. Patient lives at home with a roommate and is independent of ADLs and IADLs. She ambulates with cane. Patient endorses mild shortness of breath, intermittent paresthesias of the lower extremity, chronic slow movement of left upper extremity. Patient denies fever, dysuria, vision changes, no morning headaches, or morning vomiting, no nausea no vomiting. ED course Dx * EKG: Sinus rhythm, pattern consistent with pulmonary disease. * Noncon head CT: Negative for acute hemorrhage, mass effect or midline shift * Head/ Neck CTA: No significant neck arterial stenoses, No cerebral large vessel arterial occlusions or thrombus * Telemetry neuroconsulted: Concern for small lacunar infarct Tx * ASA 81 * Normal saline Past Medical History Surgical History SURGICAL: Positive Section Social History SOCIAL: pt is retired, she lives with a roommate and is independent of adls and iadls, and ambulates with cane, her son Lee is here with her. Exam Vital Signs Temp Pulse Resp BP Pulse Ox O2 Del Method O2 Flow Rate 98 F 96 18 147/89 H 95 Room Air 2 11/12/24 12:40 11/12/24 12:40 11/12/24 12:40 11/12/24 12:40 11/12/24 12:56 11/12/24 12:40 11/12/24 12:56 Narrative Exam GENERAL: no acute distress, AAO x3, comfortably laying in bed HEENT: Head AT/ NC. Mucous membranes dry. PERRL. CARDIOVASCULAR: RRR. Normal S1/S2, No m/r/g. No pitting edema of bilateral LEs. RESPIRATORY: CTAB. No wheezing, rhonchi, crackles. GASTROINTESTINAL: Abdomen soft, non tender no palpable masses. Bowel sounds present MUSCULOSKELETAL:? No cyanosis or edema, no visible joint swelling. NEUROLOGICAL: MENTAL STATUS:?AAOx3 LANG/SPEECH: Fluent, ? CRANIAL NERVES: ? II: Pupils equal and reactive ? III, IV, : EOM intact, no gaze preference or deviation ? V: normal ? VII: left flattening of nasal labial fold. ? VIII: normal hearing to speech IX: subtle tongue deviation to the left ? MOTOR: 5/5 in both upper and lower extremities, LUE bradykinesia RUE nl movements, no pronator drift. ? REFLEXES: not tested ? SENSORY: Normal to touch ? COORD: Finger nose finger LEFT (some dysmetria on touching nose, however none on full extension) PSYCHIATRIC: Awake and alert, not agitated, normal mood and affect. SKIN: No obvious rashes, no jaundice, normal turgor. Results: Labs 11/12/24 12:25 11/12/24 12:25 Labs: Short CBC 11/12/24 Range/Units 12:25 WBC 12.8 H (3.6-11.0) Thou/mm3 Hgb 16.9 H (12.0-16.0) g/dL Hct 49.4 H (36.0-46.0) % Plt Count 325 (140-440) Thou/mm3 BMP 11/12/24 12:25 Sodium 145 Potassium 3.5 Chloride 109 H Carbon Dioxide 24.8 BUN 7 L Creatinine 0.7 Glucose 152 H Calcium 9.5 Cardiac Enzymes 11/12/24 Range/Units 12:25 Troponin I 0.025 (0.0-0.045) ng/mL Liver Function 11/12/24 Range/Units 12:25 Total Bilirubin 0.6 (0.3-1.2) mg/dL AST 21 (0-34) U/L ALT 13 (10-49) U/L Alkaline Phosphatase 74 (46-116) U/L Albumin 4.4 (3.4-4.8) gm/dL Quality Measures Quality Measures none Advance care planning discussed with:: patient Medications Home Medications and Allergies Home Medications ?Medication ?Instructions ?Recorded ?Confirmed ?Type ferrous sulfate 325 mg (65 mg 325 mg PO BID 08/12/23 0 11/12/24 History iron) tablet empagliflozin 10 mg tablet 10 mg PO QAM 11/12/2411/12 History (Jardiance) lisinopril 20 mg tablet 20 mg PO DAILY 11/12/2411/01 History metformin 1,000 mg tablet 1,000 mg PO BID 11/12/2404/27 History metoprolol succinate 50 mg 50 mg PO DAILY 11/12/2404/27 History tablet,extended release 24 hr paroxetine HCl 30 mg tablet 30 mg PO DAILY 11/12/24 History Allergies Allergy/AdvReac Type Severity Reaction Status Date / Time No Known Drug Allergies Allergy Verified 11/12/24 12:46 Visit Medications Acetaminophen (Acetaminophen 325 Mg Tablet) 650 mg PO Q6HR PRN PRN Reason: pain, headache Stop: 12/12/24 13:53 Aspirin (Aspirin Ec 81 Mg Tabec) 81 mg PO DAILY FLORENTINO Stop: 12/13/24 08:59 Atorvastatin Calcium (Atorvastatin Calcium 20 Mg Tablet) 80 mg PO HS FLORENTINO Stop: 12/12/24 20:59 Clopidogrel Bisulfate (Clopidogrel Bisulfate 75 Mg Tablet) 75 mg PO DAILY FLORENTINO Stop: 12/12/24 13:59 Dextrose (Dextrose 50%-Water Inj 50 Ml Syringe) 25 ml IV Q15MIN PRN PRN Reason: BG 50-70 responsive npo pt Stop: 12/12/24 13:51 Dextrose (Dextrose 50%-Water Inj 50 Ml Syringe) 50 ml IV Q15MIN PRN PRN Reason: BG <50 OR BG <70 & pt unresponsive Stop: 12/12/24 13:51 Enoxaparin Sodium (Enoxaparin Sod Inj 40 Mg/0.4 Ml Syringe) 40 mg SC QDAY FLORENTINO Stop: 11/26/24 13:44 Glucagon (Glucagon Inj 1 Mg Vial) 1 mg IM Q15MIN PRN PRN Reason: BG <70, and no IV access Hydralazine HCl (Hydralazine Inj 20 Mg/Ml Vial) 10 mg IVP Q8HR PRN PRN Reason: SBP > 180 Stop: 12/12/24 13:50 Sodium Chloride (Ns) 1,000 mls @ 100 mls/hr IV Q10H FLORENTINO Stop: 12/12/24 12:29 Last Admin: 11/12/24 13:05 Dose: 100 mls/hr Insulin Human Lispro (Insulin Lispro (Admelog) 1 Unit/0.01 Ml Unit) 0 unit SC AC FLORENTINO; Protocol Stop: 12/12/24 16:59 Ondansetron HCl (Ondansetron Inj 2 Mg/Ml Inj 2 Ml) 4 mg IVP Q4HR PRN PRN Reason: NAUSEA OR VOMITING Stop: 12/12/24 12:21 Sennosides (Senna Tablet) 1 tab PO QDAY PRN; Protocol PRN Reason: constipation Stop: 12/12/24 13:35 Discontinued Medications Aspirin (Aspirin Ec 81 Mg Tabec) 81 mg PO X1 ONE Stop: 11/12/24 12:38 Last Admin: 11/12/24 13:06 Dose: 81 mg Assessment & Plan Plan Ms. Ericka rojas is a 69-year-old woman with past medical history significant for TIA in November 2023, CAD status post stent (on ASA, Plavix) HTN, HLD, T2DM not on on insulin, depression and a chronic history of dizziness who presented to the emergent department today for left left face and left upper extremity weakness, concerning for stroke. Stroke rule out workup with NCHCT with no evidence of hemorrage, per teleneuro concern for right lacunar stroke, on exam patient continues to have flattening of left nasolabial fold and deviation of tongue to the left no weakness noted in left upper nor lower extremity. #Acute ischemic Stroke Patient was not deemed a candidate for tPA because last known well was greater than 4.5 hours Patient last known well was 10 PM 11/11. Patient went to bed after reportedly feeling left facial weakness and left upper and lower extremity weakness. Overnight she woke up to use the restroom and fell to the floor without head strike twice and then presented to the emergency department, for stroke rule out, currently undergoing stroke rule out workup. She continues to have left facial droop with flattening of the nasolabial fold and left-sided tongue deviation. Neuroexam shows left upper and lower extremities are both 5 out of 5, of note left upper extremity moves very slowly compared to right upper extremity however patient notes that slowing on the left side has been chronic, patient also has a history of chronic dizziness evaluated with extensive brain imaging. Brain MRI from September 2023 shows multi-infarct dementia. NIHSS score of 1 Dx * NCHCT: per teleneuro: No evidence of ICH or evolving stroke. Basal ganglia calcifications noted as well as old ischemic white matter changes. * CTA head neck no significant neck arterial stenosis, no cerebral large vessel occlusions or thrombus. * Brain MRI 5 mm focus of restricted diffusion in the right basal ganglia without definite, signal deficit on the ADC map, recommend consultation by neurology, correlation, with clinical findings to assess whether this represents a small acute infarct * Echo pending * A1c 5.8 * TSH 0.96 * Lipid panel: Triglycerides 139, cholesterol 158, HDL 51 * Every 4 hours neuro checks * Telemetry neurology consulted recommends; admission * In-house neurologist consulted: Dr. Monteiro, appreciate recs * Consult physical therapy * Consult speech Tx * ASA 81 mg daily * Clopidogrel 75 mg daily * Atorvastatin 40 mg at bedtime * APAP 650 mg every 6hrs as needed * Hydralazine 10 mg every 8 hours as needed for SBP greater than 180 * Keep euglycemic * Head a bed 30 degrees * Permissive hypertension in the first 48 hours continue to hold home antihypertensives #Leukocytosis Isolated leukocytosis, no fever, patient denies infectious review of systems, and on physical exam no signs of pneumonia given clear lungs on exam, no LUTS, no skin breakdown with concerns for cellulitis. Dx ? Chest x-ray follow-up ? UA follow-up - Repeat CBC tomorrow morning #Electrolyte Abnormalities - continue to replete as indicated - daily CMP, with Mg and Phos - Chronic #HTN -hold home antihtn meds iso acute ischemic stroke to allow for permissive hypertension. #GERD -Continue pantoprazole 40 mg daily #non insulin T2DM -holding home metformin -ACHS -Step 1 sliding scale insulin #CAD s/p stents -Cont ASA 81 mg, see above #acute ischemic stroke -cont home clopidogrel 75mg, see above #acute ischemic stroke #Dementia Brain MRI from September 2023 shows multi-infarct dementia, Continue to monitor for signs of waxing and waning #Depression ? Continue home paroxetine 30 mg p.o. daily Dispo: Patient lives at home with roommate. Patient ambulates with cane at baseline and is independent of IADLs and ADLs. Patient is currently undergoing stroke rule out workup Diet: Carbohydrate consistent Bowel Reg: senna 1 tab qd prn VTE ppx: lovenox 40 mg GI ppx: pantoprazole 40 mg qd Code status: Full Case discussed with my senior resident Dr. Goodwin Case discussed with my attending Dr. Dariana Messina MD PGY-1 Attending Provider Attestation/Addendum I attest that I was physically present for the evaluation, physical examination, lab and imaging review of the patient with the residents. I discussed the case with the residents and agree with the findings and plans of care as documented above. Patient is a 69 years old female with past medical history of TIA, CAD status post stent, hypertension, hyperlipidemia, diabetes and depression who presented to the ED with complaint of left facial droop and left upper extremity weakness. Patient started having symptoms since last night, this morning she had a fall due to imbalance and dizziness and decided to visit the ED. In the ED, sepsis alert was called, CT head was done which was negative for acute changes and hemorrhage but showed basal ganglia calcification and old ischemic white matter changes. CTA head/neck was negative for large vessel occlusion. Teleneurology was consulted, recommended admission for stroke workup. After examination of the patient and review of the clinical data I feel that this patient needs admission to the hospital for further treatment/evaluation of possible acute CVA. We will start her on aspirin and statin. We will obtain brain MRI, in-house neurology consult, echocardiography, physical therapy and speech therapy evaluation. Also started on insulin regimen for diabetes. Eduin Westbrook MD
[2024-11-12] MEDS: ENOXAPARIN SOD INJ 40 MG/0.4 ML SYRINGE SC (14:00)
[2024-11-12] MEDS: CLOPIDOGREL BISULFATE 75 MG TABLET PO (14:19)
[2024-11-12 14:27] LABS: Cardiac Risk Estimate 3.1 RATIO (3.7-5.6); Cholesterol 158 mg/dL (132-200); HDL Cholesterol 51 mg/dL (40-60); LDL Cholesterol,Calculated 79 mg/dL (0-130); Thyroid Stimulating Hormone 0.96 uIU/mL (0.55-4.78); Triglycerides 139 mg/dL (30-150)
[2024-11-12 14:53] LABS: Glucose Estimated Average 120 mg/dL (80-131); Hemoglobin A1C 5.8 % Hgb (4.8-6.0)
--- NOTE | 2024-11-12 15:02 | PD.TNEURO ---
Tele Neuro Consultation Consultation Date 11/12/24 Most Recent Vital Signs Last Vital Signs Temp 98 F 11/12/24 12:40 Pulse 91 11/12/24 14:00 Resp 18 11/12/24 14:00 BP 142/114 H 11/12/24 14:00 Pulse Ox 97 11/12/24 14:00 O2 Del Method Nasal Cannula 11/12/24 14:00 O2 Flow Rate 2 11/12/24 14:00 Laboratory-Coagulation Panel PT 11.5 Seconds (9.0-12.2) 11/12/24 12:25 INR 1.1 (0.9-1.3) 11/12/24 12:25 APTT 27.3 Seconds (22.0-36.0) 11/12/24 12:25 Consultation Narrative [facility] Patient Name:???Ericka Gaming Date of :???1955 Identification Number:??? Date of Service:???11/12/2024 12:13:38 Diagnosis:?R29.810 - Facial numbness/ Facial weakness ?G46.7 - Other lacunar syndromes Impression: ?69-year-old female with weakness in the face as well as not being able to get up. At this point, outside time frame for IV thrombolytic therapy and no LVO on CTA head/neck so not a candidate for intervention. At this point, would add baby ASA 81 mg daily to Eliquis and admit for MRI brain and stroke workup. Thanks for the consultation. Our recommendations are outlined below. Recommendations: ? Stroke/Telemetry Floor ? Neuro Checks (Q2) ? Bedside Swallow Eval ? DVT Prophylaxis ? IV Fluids, Normal Saline ? Head of Bed 30 Degrees ? Euglycemia and Avoid Hyperthermia (PRN Acetaminophen) Sign Out: ? Discussed with Emergency Department Provider Advanced Imaging:CTA Head and Neck Completed. Metrics: Last Known Well: 11/11/2024 22:00:00 Dispatch Time: 11/12/2024 12:13:38 Arrival Time: 11/12/2024 12:16:00 Initial Response Time: 11/12/2024 12:15:48Symptoms: Left-sided facial droop.. Initial patient interaction: 11/12/2024 12:21:09 NIHSS Assessment Completed: 11/12/2024 12:30:34Patient is not a candidate for Thrombolytic. Thrombolytic Medical Decision: 11/12/2024 12:30:37Patient was not deemed candidate for Thrombolytic because of following reasons: LKW outside 4.[address] Head: I personally reviewed all the CT images that were available to me and it showed: No evidence of ICH or evolving stroke. Basal ganglia calcifications noted as well as old ischemic white matter changes. Primary Provider Notified of Diagnostic Impression and Management Plan on: 11/12/2024 12:34:37 History of Present Illness:Patient is a 69 year old Female. Patient was brought by EMS for symptoms of Left-sided facial droop.. This is a 69-year-old female with last known well time of 10 PM who got up to use the restroom and actually fell. At that point, she stayed on the ground and waited until the next morning where she got a roommate to help her call her son to take her back to bed. Noted to have left-sided facial droop so she came to the hospital for further evaluation of this. ? Past Medical History: ?Hypertension ?Diabetes Mellitus ?Hyperlipidemia ?Coronary Artery Disease ?Stroke ?Seizures Medications: Anticoagulant use:??Yes?Eliquis No Antiplatelet use Reviewed EMR for current medications Allergies:? Reviewed Social History: Drug Use: No Family History: There is no family history of premature cerebrovascular disease pertinent to this consultation ROS : 14 Points Review of Systems was performed and was negative except mentioned in HPI. Past Surgical History: There Is No Surgical History Contributory To Today?s Visit ? Examination: BP(146/124),?Pulse(67),?Blood Glucose(133) 1A: Level of Consciousness - Alert; keenly responsive?+ 0 1B: Ask Month and Age - Both Questions Right?+ 0 1C: Blink Eyes & Squeeze Hands - Performs Both Tasks?+ 0 2: Test Horizontal Extraocular Movements - Normal?+ 0 3: Test Visual Olmos - No Visual Loss?+ 0 4: Test Facial Palsy (Use Grimace if Obtunded) - Minor paralysis (flat nasolabial fold, smile asymmetry)?+ 1 5A: Test Left Arm Motor Drift - No Drift for 10 Seconds?+ 0 5B: Test Right Arm Motor Drift - No Drift for 10 Seconds?+ 0 6A: Test Left Leg Motor Drift - No Drift for 5 Seconds?+ 0 6B: Test Right Leg Motor Drift - No Drift for 5 Seconds?+ 0 7: Test Limb Ataxia (FNF/Heel-Moran) - No Ataxia?+ 0 8: Test Sensation - Normal; No sensory loss?+ 0 9: Test Language/Aphasia - Normal; No aphasia?+ 0 10: Test Dysarthria - Normal?+ 0 11: Test Extinction/Inattention - No abnormality?+ 0 NIHSS Score:?1 Pre-Morbid Modified [place] Scale:2 Points = Slight disability; unable to carry out all previous activities, but able to look after own affairs without assistance Spoke with :?Dr. Vidal Alvarado MD This consult was conducted in real time using interactive audio and video technology. Patient was informed of the technology being used for this visit and agreed to proceed. Patient located in hospital and provider located at home/office setting. Patient is being evaluated for possible acute neurologic impairment and high probability of imminent or life-threatening deterioration. I spent total of 40 minutes providing care to this patient, including time for face to face visit via telemedicine, review of medical records, imaging studies and discussion of findings with providers, the patient and/or family. Dr Fausto Cheung [facility] For Inpatient follow-up with [facility] physician please call [facility] at . As we are not an outpatient service for any post hospital discharge needs please contact the hospital for assistance. If you have any questions for the [facility] physicians or need to reconsult for clinical or diagnostic changes please contact us via [facility] at . ?
--- NOTE | 2024-11-12 15:34 | PC.NURSE ---
delayed giving medications due to pt in mri
--- NOTE | 2024-11-12 16:14 | PC.NURSE ---
attempted to call report and nurse unavailable
[2024-11-12] MEDS: Magnesium Sulfate 4 GM Ivpb 4 GM/50 ML BAG IV (16:27)
[2024-11-12] MEDS: PANTOPRAZOLE 40 MG TABLET PO (16:30)
[2024-11-12] MEDS: POTASSIUM CHLORIDE 10% 20 MEQ/15 ML UDC 40 MEQ GT (16:31)
--- NOTE | 2024-11-12 18:26 | XR_ITS ---
Examination: AP chest single view TECHNIQUE: AP portable upright chest single view Date and time: November 12, 2024, 1828 hours Comparison November 21, 2023 INDICATIONS: Chest pain today FINDINGS: Increased density retrocardiac Also retrocardiac gastric hernia Right lung clear Mild prominence of ventricle. No pulmonary edema. IMPRESSION: Recommend lateral chest view follow-up to exclude pneumonia left base
--- NOTE | 2024-11-12 23:13 | ESPR_ITS ---
Documentation for date of: 11/12/24 Exam - Neurology Vital Signs Temp Pulse Resp BP Pulse Ox O2 Del Method O2 Flow Rate 97.6 F 80 17 142/91 H 100 Nasal Cannula 1 11/12/24 20:00 11/12/24 20:00 11/12/24 20:00 11/12/24 20:00 11/12/24 20:00 11/12/24 20:00 11/12/24 20:00 Objective Labs 11/12/24 12:25 11/12/24 12:25 Labs: Laboratory Results - last 24 hr 11/12/24 11/12/24 12:25 14:23 WBC 12.8 H RBC 5.91 H Hgb 16.9 H Hct 49.4 H MCV 84 MCH 28.6 MCHC 34.2 RDW Std Deviation 40.8 Plt Count 325 Neut % (Auto) 86 H Lymph % (Auto) 7 L [place] % (Auto) 7 Eos % (Auto) 0 Baso % (Auto) 0 Neut # (Auto) 11.0 H Lymph # (Auto) 0.9 L [place] # (Auto) 0.9 H Eos # (Auto) 0.0 Baso # (Auto) 0.1 Immature Gran # (Auto) 0.07 H Absolute Nucleated RBC 0.00 Immature Gran % 1 H Nucleated RBC % 0 PT 11.5 INR 1.1 APTT 27.3 Sodium 145 Potassium 3.5 Chloride 109 H Carbon Dioxide 24.8 Anion Gap 11 BUN 7 L Creatinine 0.7 Estim Creat Clear Calc 66.4 eGFR > 60 BUN/Creatinine Ratio 10 L Glucose [address] Glu mg/dL 120 Hemoglobin A1c 5.8 Calculated Osmolality 289 Calcium 9.5 Corrected Calcium 9.5 Magnesium 1.8 Total Bilirubin 0.6 AST 21 ALT 13 Alkaline Phosphatase 74 Troponin I 0.025 B-Natriuretic Peptide 136 H Total Protein 7.0 Albumin 4.4 Globulin 2.6 Albumin/Globulin Ratio 1.7 Triglycerides 139 Cholesterol 158 LDL Cholesterol, Calc 79 HDL Cholesterol 51 Cholesterol/HDL Ratio 3.1 L TSH 0.96 Ethyl Alcohol < 3.0
[2024-11-13] VITALS (8 sets, daily range): BP systolic 118–150; BP diastolic 67–95; PULSE 69–85; RESP 14–18; TEMP 36.3–36.8; O2SAT 96–100; BMI 28.3; BMI 11.0
[2024-11-13] MEDS: SODIUM CHLORIDE 0.9% 1000 ML 1,000 ML 100 ML IV (00:05)
[2024-11-13 06:32] LABS: Basophils # (Auto) 0.1 Thou/mm3 (0.0-0.2); Basophils % (Auto) 1 % (0-2.5); Eosinophils # (Auto) 0.3 Thou/mm3 (0.0-0.5); Eosinophils % (Auto) 4 % (0-10); Hematocrit 43.4 % (36.0-46.0); Hemoglobin 14.4 g/dL (12.0-16.0); Immature Granulocytes Auto 0.04 Thou/mm3 (0.00-0.00); Lymphocytes # (Auto) 2.1 Thou/mm3 (1.0-4.8); Lymphocytes % (Auto) 25 % (10-50); Mean Corpuscular HGB Conc 33.2 g/dl (31.0-37.0); Mean Corpuscular Hemoglobin 28.7 pg (25.0-35.0); Mean Corpuscular Volume 87 fL (80-100); Monocytes # (Auto) 0.7 Thou/mm3 (0.0-0.8); Monocytes % (Auto) 9 % (0-12); Neutrophils # (Auto) 5.2 Thou/mm3 (1.8-7.7); Neutrophils % (Auto) 61 % (37-80); Nucleated Red Blood Cell # 0.00 Thou/mm3 (0.00-0.00); Nucleated Red Blood Cell % 0 /100 WBC (0); Platelet Count 274 Thou/mm3 (140-440); RDW Standard Deviation 43.7 fL (36.4-46.3); Red Blood Count 5.02 Miln/mm3 (4.00-5.20); White Blood Count 8.4 Thou/mm3 (3.6-11.0)
[2024-11-13 07:13] LABS: Alanine Aminotransferase 9 U/L (10-49); Albumin, Serum 3.8 gm/dL (3.4-4.8); Albumin/Globulin Ratio 1.8 (1.2-2.2); Alkaline Phosphatase 59 U/L (46-116); Anion Gap 10 (7-16); Aspartate Amino Transferase 15 U/L (0-34); BUN/Creatinine Ratio 9 Ratio (12-20); Bilirubin,Total 0.6 mg/dL (0.3-1.2); Blood Urea Nitrogen 6 mg/dL (9-23); Calcium 8.6 mg/dL (8.3-10.6); Calcium (Corrected) 8.8 mg/dL (8.5-10.1); Carbon Dioxide 27.0 mMol/L (20.0-31.0); Chloride 111 mMol/L (98-107); Creatinine (Component) 0.7 mg/dL (0.6-1.3); Estimated Creatinine Clearance 65.2 mL/min (>60); Globulin 2.1 gm/dL (2.3-3.5); Glucose 111 mg/dL (74-106); Magnesium 2.3 mg/dL (1.6-2.6); Osmolality,Calculated 292 (275-295); Phosphorous 3.2 mg/dL (2.4-5.1); Potassium 3.6 mMol/L (3.4-5.1); Sodium 148 mMol/L (136-145); Total Protein 5.9 gm/dL (5.7-8.2); eGFR > 60 See Note
[2024-11-13] MEDS: ENOXAPARIN SOD INJ 40 MG/0.4 ML SYRINGE SC (09:38)
[2024-11-13] MEDS: RINGERS LACTATED 1000 ML 1,000 ML 100 ML IV (10:07)
[2024-11-13] MEDS: PANTOPRAZOLE 40 MG TABLET PO (10:43)
[2024-11-13] MEDS: CLOPIDOGREL BISULFATE 75 MG TABLET PO (10:43)
[2024-11-13] MEDS: ASPIRIN EC 81 MG TABEC PO (10:43)
--- NOTE | 2024-11-13 14:31 | ESPR_ITS ---
Documentation for date of: 11/13/24 Subjective Subjective Interval history: Patient was seen and examined at the bedside. Patient is admitted for stroke workup. Patient reported that her residual left-sided facial droop has gotten worse since she arrived. She continued to have left upper extremity weakness. MRI brain showed 5 mm focus of restricted diffusion in right basal ganglia representing small acute stroke. Echocardiogram showed EF at 55%. Trace MR and TR. Labs showed white count 8.4. Hemoglobin stable at 14.4. Chemistry panel electrolytes showing sodium mildly elevated 148. Chloride 111. Kidney function stable. neurologist recommended to continue aspirin Plavix and statin therapy. PT evaluation is pending. Exam Vital Signs Temp Pulse Resp BP Pulse Ox O2 Del Method O2 Flow Rate 97.5 F 74 18 118/85 H 98 Nasal Cannula 1 11/13/24 14:06 11/13/24 14:06 11/13/24 14:06 11/13/24 14:06 11/13/24 14:06 11/13/24 14:06 11/13/24 14:06 Narrative Exam GENERAL APPEARANCE: AxOx4 female in no acute distress. Saturating well on room air. HEENT: NC, AT. MMM. EOMI, clear conjunctiva, oropharynx clear. Mild left facial droop. NECK: Supple without lymphadenopathy. No stiffness or restricted ROM. HEART: Regular rate and regular rhythm, normal S1/S2, no m/r/g LUNGS: CTAB, moving air well. No crackles or wheezes are heard. ABDOMEN: Soft, nontender, nondistended with good bowel sounds heard. BACK: No CVAT, no obvious deformity. EXTREMITIES: Power in left upper extremity 3/ 5. Power in right upper extremity 5/5. Power in both lower extremities 5/5 NEUROLOGICAL: Grossly nonfocal. Alert and oriented, moving all 4 extremities. CN not formally tested but appear grossly intact. Observed to ambulate with normal gait. Skin: Warm and dry without any rash. Psych: Appropriate mood and affect Objective Labs 11/14/24 05:19 11/14/24 05:19 Labs: Laboratory Results - last 24 hr 11/12/24 11/13/24 14:23 05:29 WBC 8.4 RBC 5.02 Hgb 14.4 D Hct 43.4 MCV 87 MCH 28.7 MCHC 33.2 RDW Std Deviation 43.7 Plt Count 274 D Neut % (Auto) 61 Lymph % (Auto) 25 Riley % (Auto) 9 Eos % (Auto) 4 Baso % (Auto) 1 Neut # (Auto) 5.2 Lymph # (Auto) 2.1 Riley # (Auto) 0.7 Eos # (Auto) 0.3 Baso # (Auto) 0.1 Immature Gran # (Auto) 0.04 H Absolute Nucleated RBC 0.00 Immature Gran % 1 H Nucleated RBC % 0 Sodium 148 H Potassium 3.6 Chloride 111 H Carbon Dioxide 27.0 Anion Gap 10 BUN 6 L Creatinine 0.7 Estim Creat Clear Calc 65.2 eGFR > 60 BUN/Creatinine Ratio 9 L Glucose [address] Glu mg/dL 120 Hemoglobin A1c 5.8 Calculated Osmolality 292 Calcium 8.6 Corrected Calcium 8.8 Phosphorus 3.2 Magnesium 2.3 Total Bilirubin 0.6 AST 15 ALT 9 L Alkaline Phosphatase 59 D Total Protein 5.9 Albumin 3.8 D Globulin 2.1 L Albumin/Globulin Ratio 1.8 Quality Measures Quality Measures VTE prophylaxis (Lovenox 40 mg ) Advance care planning discussed with:: other Assessment & Plan Assessment Current Active Medications: Generic Name Dose Route Start Last Admin Trade Name Freq PRN Reason Stop Dose Admin Acetaminophen 650 mg 11/12/24 13:54 Acetaminophen 325 Mg Tablet PO 12/12/24 13:53 Q6HR PRN pain, headache Aspirin 81 mg 11/13/24 09:00 11/13/24 10:43 Aspirin Ec 81 Mg Tabec PO 12/13/24 08:59 81 mg DAILY FLORENTINO Administration Atorvastatin Calcium 80 mg 11/12/24 21:00 11/12/24 20:50 Atorvastatin Calcium 20 Mg Tablet PO 12/12/24 20:59 Not Given HS FLORENTINO Clopidogrel Bisulfate 75 mg 11/13/24 09:00 11/13/24 10:43 Clopidogrel Bisulfate 75 Mg Tablet PO 12/13/24 08:59 75 mg QDAY FLORENTINO Administration Dextrose 25 ml 11/12/24 13:52 Dextrose 50%-Water Inj 50 Ml Syringe IV 12/12/24 13:51 Q15MIN PRN BG 50-70 responsive npo pt Dextrose 50 ml 11/12/24 13:52 Dextrose 50%-Water Inj 50 Ml Syringe IV 12/12/24 13:51 Q15MIN PRN BG <50 OR BG <70 & pt unresponsive Enoxaparin Sodium 40 mg 11/12/24 13:45 11/13/24 09:38 Enoxaparin Sod Inj 40 Mg/0.4 Ml Syringe SC 11/26/24 13:44 40 mg QDAY FLORENTINO Administration Glucagon 1 mg 11/12/24 13:52 Glucagon Inj 1 Mg Vial IM Q15MIN PRN BG <70, and no IV access Hydralazine HCl 10 mg 11/12/24 13:51 Hydralazine Inj 20 Mg/Ml Vial IVP 12/12/24 13:50 Q8HR PRN SBP > 180 Lactated Ringer's 1,000 mls @ 100 mls/hr 11/13/24 09:54 11/13/24 10:07 Lactated Ringers IV 11/13/24 19:53 100 mls/hr .Q10H FLORENTINO Administration Insulin Human Lispro 0 unit 11/13/24 00:00 11/13/24 14:20 Insulin Lispro (Admelog) 1 Unit/0.01 Ml Unit SC 12/13/24 00:00 Not Given Q6HR FLORENTINO Protocol Metoprolol Succinate 50 mg 11/13/24 14:00 Metoprolol Succinate Xl 25 Mg Tabcr PO 12/13/24 13:59 DAILY FLORENTINO Ondansetron HCl 4 mg 11/12/24 12:22 Ondansetron Inj 2 Mg/Ml Inj 2 Ml IVP 12/12/24 12:21 Q4HR PRN NAUSEA OR VOMITING Pantoprazole Sodium 40 mg 11/12/24 15:30 11/13/24 10:43 Pantoprazole 40 Mg Tablet PO 12/12/24 15:29 40 mg DAILY FLORENTINO Administration Paroxetine HCl 30 mg 11/13/24 09:00 11/13/24 10:42 Paroxetine Hcl 10 Mg Tablet PO 12/13/24 08:59 30 mg DAILY FLORENTINO Administration Sennosides 1 tab 11/12/24 13:36 Senna Tablet PO 12/12/24 13:35 QDAY PRN constipation Protocol Plan Ms. Ericka rojas is a 69-year-old woman with past medical history significant for TIA in November 2023, CAD status post stent (on ASA, Plavix) HTN, HLD, T2DM not on on insulin, depression and a chronic history of dizziness who presented to the emergent department today for left left face and left upper extremity weakness, concerning for stroke. Stroke rule out workup with NCHCT with no evidence of hemorrage, per teleneuro concern for right lacunar stroke, on exam patient continues to have flattening of left nasolabial fold and deviation of tongue to the left no weakness noted in left upper nor lower extremity. #Acute ischemic Stroke Patient was not deemed a candidate for tPA because last known well was greater than 4.5 hours Patient last known well was 10 PM 11/11. Patient went to bed after reportedly feeling left facial weakness and left upper and lower extremity weakness. Overnight she woke up to use the restroom and fell to the floor without head strike twice and then presented to the emergency department, for stroke rule out, currently undergoing stroke rule out workup. She continues to have left facial droop with flattening of the nasolabial fold and left-sided tongue deviation. Neuroexam shows left upper and lower extremities are both 5 out of 5, of note left upper extremity moves very slowly compared to right upper extremity however patient notes that slowing on the left side has been chronic, patient also has a history of chronic dizziness evaluated with extensive brain imaging. Brain MRI from September 2023 shows multi-infarct dementia. NIHSS score of 1 Dx * NCHCT: per teleneuro: No evidence of ICH or evolving stroke. Basal ganglia calcifications noted as well as old ischemic white matter changes. * CTA head neck no significant neck arterial stenosis, no cerebral large vessel occlusions or thrombus. * Brain MRI 5 mm focus of restricted diffusion in the right basal ganglia without definite, signal deficit on the ADC map, recommend consultation by neurology, correlation, with clinical findings to assess whether this represents a small acute infarct * Echo showed EF 55%. * A1c 5.8 TSH 0.96 Lipid panel: Triglycerides 139, cholesterol 158, HDL 51 * Every 4 hours neuro checks * ASA 81 mg daily * Clopidogrel 75 mg daily * Atorvastatin 40 mg at bedtime * In-house neurologist consulted: Dr. Monteiro, appreciate recs * physical therapy evaluation pending * APAP 650 mg every 6hrs as needed * Hydralazine 10 mg every 8 hours as needed for SBP greater than 180 * Keep euglycemic * Head a bed 30 degrees * Resumed metoprolol 50 mg once daily #Hypernatremia and hyperchloremia - Sodium elevated at 148 and chloride 111 Tx ? Started LR at 100 cc/h discontinued NS ?Avoiding hypotonic solutions given risk of cerebral edema #Leukocytosis, resolved Isolated leukocytosis, no fever, patient denies infectious review of systems, and on physical exam no signs of pneumonia given clear lungs on exam, no LUTS, no skin breakdown with concerns for cellulitis. Dx ? Chest x-ray showed retrocardiac gastric hernia. ? UA follow-up still pend - Repeat CBC tomorrow morning #Electrolyte Abnormalities - continue to replete as indicated - daily CMP, with Mg and Phos - Chronic #HTN -Resumed metoprolol succ 50 mg once a day #GERD -Continue pantoprazole 40 mg daily #non insulin T2DM -holding home metformin -ACHS -Step 1 sliding scale insulin #CAD s/p stents -Cont ASA 81 mg, see above #acute ischemic stroke -cont home clopidogrel 75mg, see above #acute ischemic stroke #Dementia Brain MRI from September 2023 shows multi-infarct dementia, Continue to monitor for signs of waxing and waning #Depression ? Continue home paroxetine 30 mg p.o. daily Dispo: Patient lives at home with roommate. Patient ambulates with cane at baseline and is independent of IADLs and ADLs. Patient is currently undergoing stroke rule out sami. PT evalo pend Diet: Carbohydrate consistent Bowel Reg: senna 1 tab qd prn VTE ppx: lovenox 40 mg GI ppx: pantoprazole 40 mg qd Code status: Full Patient was seen and discussed with attending physician, Dr.Bishwakarma Dr. Matt MD, PGY 3 Attending Provider Attestation/Addendum I attest that I was physically present for the evaluation, physical examination, lab and imaging review of the patient with the residents. I discussed the case with the residents and agree with the findings and plans of care as documented above. At bedside today, patient continues to complain of left-sided facial droop and left-sided weakness. MRI brain showed 5 mm focus of restricted diffusion in the right basal ganglia, discussed with neurology stated that patient's findings are old. We will continue with antiplatelets and statin. Echocardiography was done, negative for bubble study. Sodium level mildly elevated at 148, we will encourage patient to have increased free water intake. Awaiting physical therapy evaluation. Eduin Westbrook MD
[2024-11-13] MEDS: METOPROLOL SUCCINATE XL 25 MG TABCR 50 MG PO (14:34)
[2024-11-13 16:24] LABS: Collection Type, Urine Clean Catch; RBC,Urine 0 /hpf (0-3)
--- NOTE | 2024-11-13 16:30 | ESCONSULT_ITS ---
HPI Data of Consult Requesting Physician: Eduin Westbrook MD Admitting Provider: Eduin Westbrook MD Attending Provider: Eduin Westbrook MD Primary Care Provider: Good Juarez MD Consult Narrative History of present illness: The patient is a 69-year-old female with past medical history significant significant for CAD s/p PCI to distal RCA 5.0 x 20mm synergy stent on 02/01/2020 in [place], repeat catheterization on 11/20/2020 and Mayhowed patent RCA stent and mild disease in rest of the coronaries, TIA in November 2023, DM2, primary HTN, hypothyroidism, obesity, mild anxiety and depression who presented to ED on 11/12/2024 with chief complaint of left face and left upper and lower extremity weakness. The patient has had mild left facial droop and left upper and lower extremity weakness from the previous TIA, but the night before presentation, about 10:30 PM the patient reported that she was having more left facial droop associated with imbalance, and dizziness after which patient slowly laid down on the ground, and was unable to stand after that, until supported by her friend. However, she reported that she did not hit her head, or lose consciousness, did not had any bowel or bladder incontinence, or any episode of tongue bite. She ambulates with cane, but during that episode she was walking without her cane. She reported mild SOB, but denied any headache, chest pain, orthopnea or PND, palpitation, abdominal pain, any changes in bowel or bladder habit, fever or chills, nausea or vomiting. During my evaluation, her vitals were stable, With blood pressure of 141/78, pulse in 70s, RR 18, saturating 98% on 1 L NC. CBC was WNL, chemistry panel revealed sodium 148, potassium 3.6, bicarb 27.0, BUN 6, creatinine 0.7, blood sugar 111, magnesium 2.3, UA was turbid, glucose 4+, ketones 1+, leukocyte esterase positive, WBC 21 with 2+ urine bacteria. However she denied any urinary symptoms. U tox was negative, EKG on 11/12/2024 was revealing sinus rhythm with mild ST segment depression on lead V1, V2 and V3 with heart rate of 94. However, she denied any chest pain. Head CT revealed negative for acute hemorrhage, mass effect or midline shift. CTA head/neck revealed no significant neck arterial stenosis, no cerebral large vessel arterial occlusion or thrombus, but appears to be significant stenosis of the left posterior cerebral artery and distention P2 P3 segment. Brain MRI revealed 5 mm focus of restricted diffusion in the right basal ganglia and without a definite signal deficit on the ADC map, TTE revealed: Negative bubble study. Normal LV size and wall thickness. Estimated EF at 55%. The RV is normal in size and systolic function. Trace mitral and trace tricuspid regurgitation During my evaluation patient was on Aspirin 81 Mg daily, atorvastatin 80 Mg daily at night, clopidogrel 75 Mg daily, Lovenox 40 Mg subcutaneous daily, metoprolol succinate 50 Mg daily, paroxetine 30 Mg p.o. daily, pantoprazole 40 Mg daily, hydralazine 10 Mg IV every 8 hourly as needed. The patient did not receive any TNK as per teleneurologist recommendations. And inpatient neurology team following the patient. PMH: As mentioned above SHX: Positive for section, Family history: Significant for hypertension and diabetes mellitus Social history: Patient lives with her roommate and is independent on ADLs and IADLs, ambulates with cane, has retired. Patient denies any drug abuse, admitted tobacco smoking 4 to 5 cigarettes/day recently, remote history of amphetamine and cocaine use, denies any alcohol use Allergies: No known allergies Medications: Metformin 500 Mg daily with meals, pantoprazole 40 Mg daily, metoprolol succinate 25 Mg daily, ferrous sulfate 325 mg daily, paroxetine 30 Mg daily cc:: cc: Eduin Westbrook MD Review of Systems Review of Systems Systems Reviewed: All systems reviewed, normal except as documented Exam Vital Signs Temp Pulse Resp BP Pulse Ox O2 Del Method O2 Flow Rate 97.5 F 74 18 118/85 H 98 Nasal Cannula 1 11/13/24 14:06 11/13/24 14:34 11/13/24 14:06 11/13/24 14:34 11/13/24 14:06 11/13/24 14:06 11/13/24 14:06 Narrative Exam General: No acute distress, Alert and Oriented x 3 HEENT: Moist mucous membranes, oropharynx clear, facial asymmetry with left- sided facial droop Neck: Supple, No masses, No JVD CVS: S1S2 Regular rate and rhythm, No murmurs, rubs or gallops Lungs: Clear to auscultation with no accessory use, no wheeze no rhonchi Abd: Soft, NT/ND, +BS, no organomegaly Ext: No edema, warm and well perfused, muscle strength 4/5 in left upper and left lower extremity. Muscle strength 5/5 in right upper and right lower extremity. Sensation intact. Skin: No rash Psych: Appropriate mood and affect Results Labs 11/14/24 05:19 11/14/24 05:19 Labs: Short CBC 11/13/24 Range/Units 05:29 WBC 8.4 (3.6-11.0) Thou/mm3 Hgb 14.4 D (12.0-16.0) g/dL Hct 43.4 (36.0-46.0) % Plt Count 274 D (140-440) Thou/mm3 BMP 11/13/24 05:29 Sodium 148 H Potassium 3.6 Chloride 111 H Carbon Dioxide 27.0 BUN 6 L Creatinine 0.7 Glucose 111 H Calcium 8.6 Liver Function 11/13/24 Range/Units 05:29 Total Bilirubin 0.6 (0.3-1.2) mg/dL AST 15 (0-34) U/L ALT 9 L (10-49) U/L Alkaline Phosphatase 59 D (46-116) U/L Albumin 3.8 D (3.4-4.8) gm/dL Quality Measures Quality Measures VTE prophylaxis (Lovenox 40 mg ) Advance care planning discussed with:: patient Medications Home Medications and Allergies Home Medications ?Medication ?Instructions ?Recorded ?Confirmed ?Type empagliflozin 10 mg tablet 10 mg PO QAM 11/12/2411/12 History (Jardiance) lisinopril 20 mg tablet 20 mg PO DAILY 11/12/2411/01 History metformin 1,000 mg tablet 1,000 mg PO BID 11/12/2404/27 History metoprolol succinate 50 mg 50 mg PO DAILY 11/12/2404/27 History tablet,extended release 24 hr paroxetine HCl 30 mg tablet 30 mg PO DAILY 11/12/24 History Allergies Allergy/AdvReac Type Severity Reaction Status Date / Time No Known Drug Allergies Allergy Verified 11/12/24 12:46 Visit Medications Acetaminophen (Acetaminophen 325 Mg Tablet) 650 mg PO Q6HR PRN PRN Reason: pain, headache Stop: 12/12/24 13:53 Aspirin (Aspirin Ec 81 Mg Tabec) 81 mg PO DAILY [facility] Stop: 12/13/24 08:59 Last Admin: 11/13/24 10:43 Dose: 81 mg Atorvastatin Calcium (Atorvastatin Calcium 20 Mg Tablet) 80 mg PO HS [facility] Stop: 12/12/24 20:59 Last Admin: 11/12/24 20:50 Dose: Not Given Clopidogrel Bisulfate (Clopidogrel Bisulfate 75 Mg Tablet) 75 mg PO QDAY [facility] Stop: 12/13/24 08:59 Last Admin: 11/13/24 10:43 Dose: 75 mg Dextrose (Dextrose 50%-Water Inj 50 Ml Syringe) 25 ml IV Q15MIN PRN PRN Reason: BG 50-70 responsive npo pt Stop: 12/12/24 13:51 Dextrose (Dextrose 50%-Water Inj 50 Ml Syringe) 50 ml IV Q15MIN PRN PRN Reason: BG <50 OR BG <70 & pt unresponsive Stop: 12/12/24 13:51 Enoxaparin Sodium (Enoxaparin Sod Inj 40 Mg/0.4 Ml Syringe) 40 mg SC QDAY [facility] Stop: 11/26/24 13:44 Last Admin: 11/13/24 09:38 Dose: 40 mg Glucagon (Glucagon Inj 1 Mg Vial) 1 mg IM Q15MIN PRN PRN Reason: BG <70, and no IV access Hydralazine HCl (Hydralazine Inj 20 Mg/Ml Vial) 10 mg IVP Q8HR PRN PRN Reason: SBP > 180 Stop: 12/12/24 13:50 Lactated Ringer's (Lactated Ringers) 1,000 mls @ 100 mls/hr IV .Q10H [facility] Stop: 11/13/24 19:53 Last Admin: 11/13/24 10:07 Dose: 100 mls/hr Insulin Human Lispro (Insulin Lispro (Admelog) 1 Unit/0.01 Ml Unit) 0 unit SC Q6HR [facility]; Protocol Stop: 12/13/24 00:00 Last Admin: 11/13/24 14:20 Dose: Not Given Metoprolol Succinate (Metoprolol Succinate Xl 25 Mg Tabcr) 50 mg PO DAILY [facility] Stop: 12/13/24 13:59 Last Admin: 11/13/24 14:34 Dose: 50 mg Ondansetron HCl (Ondansetron Inj 2 Mg/Ml Inj 2 Ml) 4 mg IVP Q4HR PRN PRN Reason: NAUSEA OR VOMITING Stop: 12/12/24 12:21 Pantoprazole Sodium (Pantoprazole 40 Mg Tablet) 40 mg PO DAILY [facility] Stop: 12/12/24 15:29 Last Admin: 11/13/24 10:43 Dose: 40 mg Paroxetine HCl (Paroxetine Hcl 10 Mg Tablet) 30 mg PO DAILY [facility] Stop: 12/13/24 08:59 Last Admin: 11/13/24 10:42 Dose: 30 mg Sennosides (Senna Tablet) 1 tab PO QDAY PRN; Protocol PRN Reason: constipation Stop: 12/12/24 13:35 Discontinued Medications Aspirin (Aspirin Ec 81 Mg Tabec) 81 mg PO X1 ONE Stop: 11/12/24 12:38 Last Admin: 11/12/24 13:06 Dose: 81 mg Clopidogrel Bisulfate (Clopidogrel Bisulfate 75 Mg Tablet) 75 mg PO DAILY [facility] Stop: 12/12/24 13:59 Last Admin: 11/12/24 14:19 Dose: 75 mg Sodium Chloride (Ns) 1,000 mls @ 100 mls/hr IV Q10H [facility] Stop: 12/12/24 12:29 Last Admin: 11/13/24 00:05 Dose: 100 mls/hr Magnesium Sulfate (Magnesium Sulfate Ivpb) 4 gm in 50 mls @ 12.5 mls/hr IV X1 ONE Stop: 11/12/24 19:27 Last Admin: 11/12/24 16:27 Dose: 12.5 mls/hr Dextrose (D5w) 500 mls @ 70 mls/hr IV .Q7H9M [facility] Stop: 11/13/24 14:53 Last Admin: 11/13/24 09:15 Dose: Not Given Insulin Human Lispro (Insulin Lispro (Admelog) 1 Unit/0.01 Ml Unit) 0 unit SC [facility]; Protocol Stop: 12/12/24 16:59 Last Admin: 11/12/24 17:52 Dose: Not Given Metoprolol Succinate (Metoprolol Succinate Xl 25 Mg Tabcr) 50 mg PO DAILY [facility] Stop: 12/13/24 08:59 Potassium Chloride (Potassium Chloride 10% 20 Meq/15 Ml Udc) 40 meq GT X1 ONE Stop: 11/12/24 15:25 Last Admin: 11/12/24 16:31 Dose: 40 meq Assessment & Plan Plan The patient is a 69-year-old female with past medical history significant significant for CAD s/p PCI to distal RCA 95.0 x 20mm synergy stent on 02/01/2020 in [place], repeat catheterization on 11/20/2020 and Mayhowed patent RCA stent and mild disease in rest of the coronaries, TIA in November 2023, DM2, primary HTN, hypothyroidism, obesity, mild anxiety and depression who presented to ED on 11/12/2024 with chief complaint of left face and left upper and lower extremity weakness. The patient is currently being managed for ischemic stroke and getting further evaluation for dizziness associated with presyncope. #Ischemic stroke Patient presented with left facial, and left upper and lower extremity weakness MRI brain was significant for 5 mm focus of restricted diffusion in the right basal ganglia and without definite, signal deficit on the ADC map CTA head and neck significant for CT head negative for any acute hemorrhage, mass effect or midline shift - Aspirin 81 Mg daily - Clopidogrel 75 Mg daily - Atorvastatin 80 Mg daily at night - Maintain euglycemia - Maintain normotension after 48 hours of acute stroke #Dizziness #Presyncope #Trace mitral regurgitation #Trace tricuspid regurgitation Patient reported developing dizziness on 11/12/2023 about 10:30 PM, associated with left facial and upper and lower extremity weakness, and slowly Had to lay down due to imbalance and also reported that she was not able to stand until help by her roommate. She did not lose her consciousness, or hit her head, no urinary or fecal incontinence, no tongue bite or any abnormal movement noticed by roommate. DDx: Cardiac causes with arrhythmias, versus neurological versus ENT problem Given the patient's extensive cardiac history, patient will require further cardiology workup. EKG on 11/12/2024 was revealing sinus rhythm with mild ST segment depression on lead V1, V2 and V3 with heart rate of 94 TTE revealed: Negative bubble study. Normal LV size and wall thickness. Estimated EF at 55%. The RV is normal in size and systolic function. Trace mitral and trace tricuspid regurgitation -Telemetry monitoring -Maintain magnesium and potassium greater than 2 and 4 respectively at all the time #CAD s/p PCI to distal RCA #Hyperlipidemia - Continue with aspirin 81 Mg daily - Continue with atorvastatin 80 Mg daily #Primary hypertension Blood pressure currently well-controlled Continue with metoprolol succinate 25 Mg daily Diabetes mellitus type 2 Hypothyroidism Obesity Anxiety Depression - Management deferred to primary hospitalist team Thank you for cardiology consultation. We appreciate the opportunity to participate in this patient's care. Cardiology team will continue to follow-up on this patient. The patient's management plan was discussed with my attending physician MD Antony Campbell MD, PGY3 Attending Provider Attestation/Addendum I have personally seen and examined the patient separately on the above date of service and discussed the plan of care with the resident. I reviewed the resident Dr. Antony Batres consultation progress note and agree with the resident findings and plan in the note above and have also edited the documentation to reflect my findings and plan. Venkatesh Frias M.D. Interventional Cardiology
[2024-11-13 16:51] LABS: Bacteria,Urine 2+; Bilirubin,Urine Negative (Negative); Blood,Urine Negative (Negative); Clarity,Urine Turbid (Clear/Hazy); Color,Urine Yellow (Lt Yel-Yel); Glucose, Urine 4+ (Negative); Ketones,Urine 1+ (Negative); Leukocyte Esterase,Urine Positive (Negative); Nitrite,Urine Negative (Negative); PH,Urine 6.0 (5.0-7.0); Protein,Urine Negative (Neg - Trace); Specific Gravity,Urine 1.034 (1.001-1.035); Squamous Epithelial Cell,Urine 1 /hpf (0-5); Urobilinogen,Urine 3.0 mg/dL (0.0-1.0); WBC,Urine 21 /hpf (0-5)
[2024-11-13 16:54] LABS: Amphetamine/Methamp Scrn,U Negative (Negative); Barbiturate Screen,Urine Negative (Negative); Benzodiazepines Screen,Urine Negative (Negative); Benzoylecgonine Screen, Ur Negative (Negative); Fentanyl Screen,Urine Negative (Negative); Opiate Screen,Urine Negative (Negative); THC Screen,Urine Negative (Negative)
--- NOTE | 2024-11-13 20:07 | ESPR_ITS ---
Documentation for date of: 11/13/24 Subjective Subjective Interval history: Patient seen evaluated, reports continuation of left lower facial droop but denies difficulty with speech, word finding, upper extremity weakness, lower extremity weakness, headache, dizziness, nausea, vomiting. Exam Vital Signs Temp Pulse Resp BP Pulse Ox O2 Del Method O2 Flow Rate 97.5 F 82 18 118/85 H 98 Nasal Cannula 1 11/13/24 14:06 11/13/24 16:00 11/13/24 14:06 11/13/24 14:34 11/13/24 14:06 11/13/24 14:06 11/13/24 14:06 Narrative Exam General: No acute distress, well nourished Eye: PERRL, EOMI, normal conjunctiva, no scleral icterus HENT: Normocephalic, atraumatic, hearing intact to conversation at normal volume, moist oral mucosa Neck: Supple, non-tender, no JVD, no lymphadenopathy Lungs: Non-labored respirations, symmetric chest rise Heart: Peripheral pulses intact bilaterally Abdomen: Soft, non-tender, non-distended Musculoskeletal: Normal range of motion and strength Skin: Skin is warm, dry, no rashes or lesions. Psychiatric: Cooperative, appropriate mood and affect Neurologic: Mental status: Orientation: Oriented to person, place, time, and situation Communication: Patient is cooperative and can follow simple instructions Language: Speech fluent, normal rate and volume, comprehension intact Cranial nerves: CN II: Visual gibson intact CN III: Pupils equal, round, and reactive to light CN III, IV, : No gaze deviation, no nystagmus Horizontal pursuit: intact Vertical pursuit: intact Ptosis: none CN V: Facial sensation to light touch intact bilaterally at the forehead, cheeks, and jaw line CN VII: Left lower facial droop appreciated on smile CN VIII: Able to hear and respond to conversation at normal volume, intact to finger rub CN IX, X: Palate elevation symmetric, uvula midline CN XI: Head turn and shoulder shrug strong, symmetric bilaterally CN XII: Normal tongue protrusion without deviation, no fasciculations Motor: Normal bulk and tone No atrophy No abnormal movements or fasciculations Muscle strength: Shoulder abduction: R 5/5 L 5/5 Elbow flexion: R 5/5 L 5/5 Elbow extension: R 5/5 L 5/5 Hip flexion: R 5/5 L 5/5 Hip extension: R 5/5 L 5/5 Sensory: RUE: Light touch intact LUE: Light touch intact RLE: Light touch intact LLE: Light touch intact Reflexes: Biceps (C5-6): R 2+ L 2+ Brachioradialis (C5-6): R 2+ L 2+ Triceps (C7-8): R 2+ L 2+ Patellae (L3-4): R 2+ L 2+ Achilles (S1-2):R 2+ L 2+ No clonus Plantar reflex downgoing bilaterally Cerebellum: RUE: No dysmetria (finger to nose) LUE: No dysmetria (finger to nose) RLE: No dysmetria (heel to reid) LLE: No dysmetria (heel to reid) Romberg: negative Gait: Patient able to sit on edge of the bed, stand, take several steps with support Objective Labs 11/13/24 05:29 11/13/24 05:29 Labs: Laboratory Results - last 24 hr 11/13/24 11/13/24 05:29 16:14 WBC 8.4 RBC 5.02 Hgb 14.4 D Hct 43.4 MCV 87 MCH 28.7 MCHC 33.2 RDW Std Deviation 43.7 Plt Count 274 D Neut % (Auto) 61 Lymph % (Auto) 25 [place] % (Auto) 9 Eos % (Auto) 4 Baso % (Auto) 1 Neut # (Auto) 5.2 Lymph # (Auto) 2.1 [place] # (Auto) 0.7 Eos # (Auto) 0.3 Baso # (Auto) 0.1 Immature Gran # (Auto) 0.04 H Absolute Nucleated RBC 0.00 Immature Gran % 1 H Nucleated RBC % 0 Sodium 148 H Potassium 3.6 Chloride 111 H Carbon Dioxide 27.0 Anion Gap 10 BUN 6 L Creatinine 0.7 Estim Creat Clear Calc 65.2 eGFR > 60 BUN/Creatinine Ratio 9 L Glucose 111 H Calculated Osmolality 292 Calcium 8.6 Corrected Calcium 8.8 Phosphorus 3.2 Magnesium 2.3 Total Bilirubin 0.6 AST 15 ALT 9 L Alkaline Phosphatase 59 D Total Protein 5.9 Albumin 3.8 D Globulin 2.1 L Albumin/Globulin Ratio 1.8 Ur Collection Type Clean Catch Urine Color Yellow Urine Clarity Turbid A Urine pH 6.0 Ur Specific [place] 1.034 Urine Protein Negative Urine Glucose (UA) 4+ A Urine Ketones 1+ A Urine Blood Negative Urine Nitrite Negative Urine Bilirubin Negative Urine Urobilinogen (Auto) 3.0 Ur Leukocyte Esterase Positive Urine RBC 0 Urine WBC 21 H Ur Squamous Epith Cells 1 Urine Bacteria 2+ A Urine Opiates Screen Negative Urine Fentanyl Screen Negative Ur Barbiturates Screen Negative U Amphetamin/Meth Scrn Negative U Benzodiazepines Scrn Negative U Cocaine Metab Screen Negative U Marijuana (THC) Screen Negative Quality Measures Quality Measures VTE prophylaxis (Lovenox 40 mg ) Advance care planning discussed with:: patient Assessment & Plan Assessment Current Active Medications: Generic Name Dose Route Start Last Admin Trade Name Freq PRN Reason Stop Dose Admin Acetaminophen 650 mg 11/12/24 13:54 Acetaminophen 325 Mg Tablet PO 12/12/24 13:53 Q6HR PRN pain, headache Aspirin 81 mg 11/13/24 09:00 11/13/24 10:43 Aspirin Ec 81 Mg Tabec PO 12/13/24 08:59 81 mg DAILY FLORENTINO Administration Atorvastatin Calcium 80 mg 11/12/24 21:00 11/12/24 20:50 Atorvastatin Calcium 20 Mg Tablet PO 12/12/24 20:59 Not Given HS FLORENTINO Clopidogrel Bisulfate 75 mg 11/13/24 09:00 11/13/24 10:43 Clopidogrel Bisulfate 75 Mg Tablet PO 12/13/24 08:59 75 mg QDAY FLORENTINO Administration Dextrose 25 ml 11/12/24 13:52 Dextrose 50%-Water Inj 50 Ml Syringe IV 12/12/24 13:51 Q15MIN PRN BG 50-70 responsive npo pt Dextrose 50 ml 11/12/24 13:52 Dextrose 50%-Water Inj 50 Ml Syringe IV 12/12/24 13:51 Q15MIN PRN BG <50 OR BG <70 & pt unresponsive Enoxaparin Sodium 40 mg 11/12/24 13:45 11/13/24 09:38 Enoxaparin Sod Inj 40 Mg/0.4 Ml Syringe SC 11/26/24 13:44 40 mg QDAY FLORENTINO Administration Glucagon 1 mg 11/12/24 13:52 Glucagon Inj 1 Mg Vial IM Q15MIN PRN BG <70, and no IV access Hydralazine HCl 10 mg 11/12/24 13:51 Hydralazine Inj 20 Mg/Ml Vial IVP 12/12/24 13:50 Q8HR PRN SBP > 180 Insulin Human Lispro 0 unit 11/13/24 16:45 11/13/24 17:02 Insulin Lispro (Admelog) 1 Unit/0.01 Ml Unit SC 12/13/24 16:44 Not Given ACHS FLORENTINO Protocol Metoprolol Succinate 50 mg 11/13/24 14:00 11/13/24 14:34 Metoprolol Succinate Xl 25 Mg Tabcr PO 12/13/24 13:59 50 mg DAILY FLORENTINO Administration Ondansetron HCl 4 mg 11/12/24 12:22 Ondansetron Inj 2 Mg/Ml Inj 2 Ml IVP 12/12/24 12:21 Q4HR PRN NAUSEA OR VOMITING Pantoprazole Sodium 40 mg 11/12/24 15:30 11/13/24 10:43 Pantoprazole 40 Mg Tablet PO 12/12/24 15:29 40 mg DAILY FLORENTINO Administration Paroxetine HCl 30 mg 11/13/24 09:00 11/13/24 10:42 Paroxetine Hcl 10 Mg Tablet PO 12/13/24 08:59 30 mg DAILY FLORENTINO Administration Sennosides 1 tab 11/12/24 13:36 Senna Tablet PO 12/12/24 13:35 QDAY PRN constipation Protocol Plan #Acute ischemic Stroke #Left sided weakness, LKAW 10 PM 11/11. Patient went to bed after reportedly feeling left facial weakness and left upper and lower extremity weakness. Overnight she woke up to use the restroom and fell to the floor without head strike twice and then presented to the emergency department, for stroke rule out, currently undergoing stroke rule out workup. She continues to have left facial droop with flattening of the nasolabial fold. Initial NIHSS score 1. TNK not given 2/2 outside of 4.5-hour window. CT head without contrast negative for acute hemorrhage, midline shift, mass effect. CTA negative for LVO. MRI stroke protocol negative for acute infarct, showed chronic white matter changes TTE LVEF 55% A1c 5.8, lipids WNL, TSH WNL, EtOH WNL EKG showed normal sinus rhythm with heart rate 94, QTc 448 Plan: -Continue aspirin 81 mg daily, Plavix 75 mg daily, high intensity statin -Pending PT evaluation -BP management # Hypertension Plan: - Management per primary team #GERD Plan: - Management per primary team?pantoprazole #non insulin T2DM Plan: - Management per primary team #CAD s/p stents Plan: - Management per primary team - continue ASA, Plavix #Dementia Brain MRI from September 2023 shows multi-infarct dementia AAOx3 on exam Plan: - Management per primary team?CTM #Depression Plan: ? Management per primary team -continue home paroxetine 30 mg p.o. daily Plan discussed with Dr. Cayetano Santana, PGY1 Attending Provider Attestation/Addendum I independently reviewed the patient's record and agree with resident's findings, assessment and plan of care. I do not think the patient's MRI findings are consistent with acute ischemic infarction and left facial weakness of upper motor neuron type has been there for some time according to the patient. Continue with aspirin Plavix and statin.
[2024-11-13] MEDS: INSULIN LISPRO (AdmeLOG) 1 UNIT/0.01 ML UNIT SC (20:16)
[2024-11-13] MEDS: ATORVASTATIN CALCIUM 20 MG TABLET 80 MG PO (20:16)
[2024-11-14] VITALS (10 sets, daily range): BP systolic 138–157; BP diastolic 78–99; PULSE 62–79; RESP 15–98; TEMP 36.2–36.4; O2SAT 96–97; BMI 28.3
[2024-11-14 06:36] LABS: Basophils # (Auto) 0.1 Thou/mm3 (0.0-0.2); Basophils % (Auto) 1 % (0-2.5); Eosinophils # (Auto) 0.4 Thou/mm3 (0.0-0.5); Eosinophils % (Auto) 4 % (0-10); Hematocrit 40.8 % (36.0-46.0); Hemoglobin 13.8 g/dL (12.0-16.0); Immature Granulocytes Auto 0.04 Thou/mm3 (0.00-0.00); Lymphocytes # (Auto) 2.0 Thou/mm3 (1.0-4.8); Lymphocytes % (Auto) 20 % (10-50); Mean Corpuscular HGB Conc 33.8 g/dl (31.0-37.0); Mean Corpuscular Hemoglobin 28.5 pg (25.0-35.0); Mean Corpuscular Volume 84 fL (80-100); Monocytes # (Auto) 0.8 Thou/mm3 (0.0-0.8); Monocytes % (Auto) 9 % (0-12); Neutrophils # (Auto) 6.4 Thou/mm3 (1.8-7.7); Neutrophils % (Auto) 66 % (37-80); Nucleated Red Blood Cell # 0.00 Thou/mm3 (0.00-0.00); Nucleated Red Blood Cell % 0 /100 WBC (0); Platelet Count 269 Thou/mm3 (140-440); RDW Standard Deviation 41.5 fL (36.4-46.3); Red Blood Count 4.85 Miln/mm3 (4.00-5.20); White Blood Count 9.7 Thou/mm3 (3.6-11.0)
[2024-11-14 07:08] LABS: Alanine Aminotransferase < 7 U/L (10-49); Albumin, Serum 3.7 gm/dL (3.4-4.8); Albumin/Globulin Ratio 1.7 (1.2-2.2); Alkaline Phosphatase 61 U/L (46-116); Anion Gap 10 (7-16); Aspartate Amino Transferase 15 U/L (0-34); BUN/Creatinine Ratio 8 Ratio (12-20); Bilirubin,Total 0.9 mg/dL (0.3-1.2); Blood Urea Nitrogen < 5 mg/dL (9-23); Calcium 8.7 mg/dL (8.3-10.6); Calcium (Corrected) 8.9 mg/dL (8.5-10.1); Carbon Dioxide 27.2 mMol/L (20.0-31.0); Chloride 108 mMol/L (98-107); Creatinine (Component) 0.6 mg/dL (0.6-1.3); Estimated Creatinine Clearance 76.0 mL/min (>60); Globulin 2.2 gm/dL (2.3-3.5); Glucose 110 mg/dL (74-106); Magnesium 1.4 mg/dL (1.6-2.6); Osmolality,Calculated 286 (275-295); Phosphorous 2.8 mg/dL (2.4-5.1); Potassium 3.4 mMol/L (3.4-5.1); Sodium 145 mMol/L (136-145); Total Protein 5.9 gm/dL (5.7-8.2); eGFR > 60 See Note
--- NOTE | 2024-11-14 08:07 | PD.RESDS ---
Planned Discharge Date 11/14/24 DS: Providers Provider Date of admission: 11/12/24 13:36 Primary care physician: Good Juarez MD Admitting Provider: Eduin Westbrook MD Attending Provider on Admission: Eduin Westbrook MD Consults: 11/12/24 12:22 Consult to Neurology / Tele-Neurology Routine Comment: Consulting Provider: [facility] 11/12/24 13:42 Referral Speech Therapy Routine Comment: 11/12/24 13:49 Consult to Neurology / Tele-Neurology Routine Comment: stroke r/o Consulting Provider: Donavan Monteiro Referral Physical Therapy Stat Comment: Physician Instructions: Instructions: stroke 11/13/24 08:45 Referral - [employer] Electoral Officer Routine Comment: adrián Vasquez Attending Provider on DC: [facility] [place] Discharging Provider: [facility] [place] Hospital Course Hospital Course Hospital course: The patient is a 69-year-old female with past medical history significant significant for CAD s/p PCI to distal RCA 95.0 x 20mm synergy stent on 02/01/2020 in [place], repeat catheterization on 11/20/2020 and Mayhowed patent RCA stent and mild disease in rest of the coronaries, TIA in November 2023, DM2, primary HTN, hypothyroidism, obesity, mild anxiety and depression who presented to ED on 11/12/2024 with chief complaint of left face and left upper and lower extremity weakness. The patient has had mild left facial droop and left upper and lower extremity weakness from the previous TIA, but the night before presentation, about 10:30 PM the patient reported that she was having more left facial droop associated with imbalance, and dizziness after which patient slowly laid down on the ground, and was unable to stand after that, until supported by her friend. However, she reported that she did not hit her head, or lose consciousness, did not had any bowel or bladder incontinence, or any episode of tongue bite. She ambulates with cane, but during that episode she was walking without her cane. She reported mild SOB, but denied any headache, chest pain, orthopnea or PND, palpitation, abdominal pain, any changes in bowel or bladder habit, fever or chills, nausea or vomiting. During my evaluation, her vitals were stable, With blood pressure of 141/78, pulse in 70s, RR 18, saturating 98% on 1 L NC. CBC was WNL, chemistry panel revealed sodium 148, potassium 3.6, bicarb 27.0, BUN 6, creatinine 0.7, blood sugar 111, magnesium 2.3, UA was turbid, glucose 4+, ketones 1+, leukocyte esterase positive, WBC 21 with 2+ urine bacteria. However she denied any urinary symptoms. U tox was negative, EKG on 11/12/2024 was revealing sinus rhythm with mild ST segment depression on lead V1, V2 and V3 with heart rate of 94. However, she denied any chest pain. Head CT revealed negative for acute hemorrhage, mass effect or midline shift. CTA head/neck revealed no significant neck arterial stenosis, no cerebral large vessel arterial occlusion or thrombus, but appears to be significant stenosis of the left posterior cerebral artery and distention P2 P3 segment. Brain MRI revealed 5 mm focus of restricted diffusion in the right basal ganglia and without a definite signal deficit on the ADC map, TTE revealed: Negative bubble study. Normal LV size and wall thickness. Estimated EF at 55%. The RV is normal in size and systolic function. Trace mitral and trace tricuspid regurgitation During my evaluation patient was on Aspirin 81 Mg daily, atorvastatin 80 Mg daily at night, clopidogrel 75 Mg daily, Lovenox 40 Mg subcutaneous daily, metoprolol succinate 50 Mg daily, paroxetine 30 Mg p.o. daily, pantoprazole 40 Mg daily, hydralazine 10 Mg IV every 8 hourly as needed. The patient did not receive any TNK as per teleneurologist recommendations. And inpatient neurology team following the patient. PMH: As mentioned above SHX: Positive for section, Family history: Significant for hypertension and diabetes mellitus Social history: Patient lives with her roommate and is independent on ADLs and IADLs, ambulates with cane, has retired. Patient denies any drug abuse, admitted tobacco smoking 4 to 5 cigarettes/day recently, remote history of amphetamine and cocaine use, denies any alcohol use Allergies: No known allergies Medications: Metformin 500 Mg daily with meals, pantoprazole 40 Mg daily, metoprolol succinate 25 Mg daily, ferrous sulfate 325 mg daily, paroxetine 30 Mg daily Time Spent with Patient Time attestation: Total time spent providing and/or coordinating discharge services: Quality: Stroke Pt Provided Written Stroke Discharge Instructions: No Exam Vital Signs Temp Pulse Resp BP Pulse Ox O2 Del Method O2 Flow Rate 97.1 F 70 18 145/78 H 96 Nasal Cannula 1 11/14/24 04:00 11/14/24 06:36 11/14/24 06:36 11/14/24 04:00 11/14/24 04:00 11/14/24 04:00 11/13/24 14:06 Discharge Plan Prescriptions/Referrals Prescriptions/Med Rec: No Action clopidogrel [Plavix] 75 mg Tablet 75 mg PO QDAY Qty: 30 0RF nitroglycerin 0.4 mg tablet, sublingual 0.4 mg BUCCAL [id number] PRN (Reason: chest pain) Qty: 100 0RF Rx Instructions: Please seek immediate medical attention if no alleviation of chest pain. atorvastatin 80 mg tablet 80 mg PO HS 30 Days Qty: 30 3RF metformin 1,000 mg tablet 1,000 mg PO BID Patient Comments: TAKE 1 TABLET BY MOUTH TWICE A DAY WITH BREAKFAST AND DINNER paroxetine HCl 30 mg tablet 30 mg PO DAILY Patient Comments: TAKE 1 TABLET BY MOUTH EVERY DAY lisinopril 20 mg tablet 20 mg PO DAILY Patient Comments: TAKE 1 TABLET BY MOUTH EVERY DAY metoprolol succinate 50 mg tablet extended release 24 hr 50 mg PO DAILY Patient Comments: TAKE 1 TABLET BY MOUTH EVERY DAY Jardiance 10 mg tablet 10 mg PO QAM ferrous sulfate 325 mg (65 mg iron) Tablet 325 mg PO BID Referrals: Good Juarez MD [Primary Care Provider] - Patient/Caregiver Discharge Instructions Print Language: Slovak
[2024-11-14] MEDS: POTASSIUM CHLORIDE 10% 20 MEQ/15 ML UDC 40 MEQ PO (08:44)
[2024-11-14] MEDS: Magnesium Sulfate 4 GM Ivpb 4 GM/50 ML BAG IV (08:44)
[2024-11-14] MEDS: ENOXAPARIN SOD INJ 40 MG/0.4 ML SYRINGE SC (08:44)
[2024-11-14] MEDS: PANTOPRAZOLE 40 MG TABLET PO (08:45)
[2024-11-14] MEDS: CLOPIDOGREL BISULFATE 75 MG TABLET PO (08:45)
[2024-11-14] MEDS: METOPROLOL SUCCINATE XL 25 MG TABCR 50 MG PO (08:45)
[2024-11-14] MEDS: ASPIRIN EC 81 MG TABEC PO (08:45)
--- NOTE | 2024-11-14 09:42 | PC.SS ---
PASRR initiated, pt requires Level 2
--- NOTE | 2024-11-14 10:11 | PC.SS ---
SNF/Acute Rehab Referral submitted
--- NOTE | 2024-11-14 11:59 | PC.SS ---
SS met with pt to provide her options, at this time Gabriel garcia, [facility] and [facility] declined. Pt accepted to [facility] (private room available), [facility], [facility], and [facility]. SS also spoke to pt Son Lee [phone] who is in agreement with pt transitioning to [facility] for PT. SS reached out to Arleth at , no answer VM and message left on LAMONTE.
--- NOTE | 2024-11-14 13:45 | PD.RESPRO ---
Documentation for date of: 11/14/24 Subjective Subjective Interval history: Patient seen at bedside, denies new symptoms. Reports that she participated in PT today during which she was able to stand with support. Exam Vital Signs Temp Pulse Resp BP Pulse Ox O2 Del Method O2 Flow Rate 97.5 F 67 16 147/89 H 97 Room Air 1 11/14/24 12:00 11/14/24 12:00 11/14/24 12:00 11/14/24 12:00 11/14/24 12:00 11/14/24 12:00 11/14/24 12:00 Narrative Exam General: No acute distress, well nourished Eye: PERRL, EOMI, normal conjunctiva, no scleral icterus HENT: Normocephalic, atraumatic, hearing intact to conversation at normal volume, moist oral mucosa Neck: Supple, non-tender, no JVD, no lymphadenopathy Lungs: Non-labored respirations, symmetric chest rise Heart: Peripheral pulses intact bilaterally Abdomen: Soft, non-tender, non-distended Musculoskeletal: Normal range of motion and strength Skin: Skin is warm, dry, no rashes or lesions. Psychiatric: Cooperative, appropriate mood and affect Neurologic: Mental status: Orientation: Oriented to person, place, time, and situation Communication: Patient is cooperative and can follow simple instructions Language: Speech fluent, normal rate and volume, comprehension intact Cranial nerves: CN II: Visual gibson intact CN III: Pupils equal, round, and reactive to light CN III, IV, : No gaze deviation, no nystagmus Horizontal pursuit: intact Vertical pursuit: intact Ptosis: none CN V: Facial sensation to light touch intact bilaterally at the forehead, cheeks, and jaw line CN VII: Left lower facial droop appreciated on smile CN VIII: Able to hear and respond to conversation at normal volume, intact to finger rub CN IX, X: Palate elevation symmetric, uvula midline CN XI: Head turn and shoulder shrug strong, symmetric bilaterally CN XII: Normal tongue protrusion without deviation, no fasciculations Motor: Normal bulk and tone No atrophy No abnormal movements or fasciculations Muscle strength: Shoulder abduction: R 5/5 L 5/5 Elbow flexion: R 5/5 L 5/5 Elbow extension: R 5/5 L 5/5 Hip flexion: R 5/5 L 5/5 Hip extension: R 5/5 L 5/5 Sensory: RUE: Light touch intact LUE: Light touch intact RLE: Light touch intact LLE: Light touch intact Reflexes: Biceps (C5-6): R 2+ L 2+ Brachioradialis (C5-6): R 2+ L 2+ Triceps (C7-8): R 2+ L 2+ Patellae (L3-4): R 2+ L 2+ Achilles (S1-2):R 2+ L 2+ No clonus Plantar reflex downgoing bilaterally Cerebellum: RUE: No dysmetria (finger to nose) LUE: No dysmetria (finger to nose) RLE: No dysmetria (heel to reid) LLE: No dysmetria (heel to reid) Romberg: negative Gait: Patient able to sit on edge of the bed Objective Labs 11/14/24 05:19 11/14/24 05:19 Labs: Laboratory Results - last 24 hr 11/13/24 11/14/24 16:14 05:19 WBC 9.7 RBC 4.85 Hgb 13.8 Hct 40.8 MCV 84 MCH 28.5 MCHC 33.8 RDW Std Deviation 41.5 Plt Count 269 Neut % (Auto) 66 Lymph % (Auto) 20 [place] % (Auto) 9 Eos % (Auto) 4 Baso % (Auto) 1 Neut # (Auto) 6.4 Lymph # (Auto) 2.0 [place] # (Auto) 0.8 Eos # (Auto) 0.4 Baso # (Auto) 0.1 Immature Gran # (Auto) 0.04 H Absolute Nucleated RBC 0.00 Immature Gran % 0 Nucleated RBC % 0 Sodium 145 Potassium 3.4 Chloride 108 H Carbon Dioxide 27.2 Anion Gap 10 BUN < 5 L Creatinine 0.6 Estim Creat Clear Calc 76.0 eGFR > 60 BUN/Creatinine Ratio 8 L Glucose 110 H Calculated Osmolality 286 Calcium 8.7 Corrected Calcium 8.9 Phosphorus 2.8 Magnesium 1.4 L Total Bilirubin 0.9 AST 15 ALT < 7 L Alkaline Phosphatase 61 Total Protein 5.9 Albumin 3.7 Globulin 2.2 L Albumin/Globulin Ratio 1.7 Ur Collection Type Clean Catch Urine Color Yellow Urine Clarity Turbid A Urine pH 6.0 Ur Specific [place] 1.034 Urine Protein Negative Urine Glucose (UA) 4+ A Urine Ketones 1+ A Urine Blood Negative Urine Nitrite Negative Urine Bilirubin Negative Urine Urobilinogen (Auto) 3.0 Ur Leukocyte Esterase Positive Urine RBC 0 Urine WBC 21 H Ur Squamous Epith Cells 1 Urine Bacteria 2+ A Urine Opiates Screen Negative Urine Fentanyl Screen Negative Ur Barbiturates Screen Negative U Amphetamin/Meth Scrn Negative U Benzodiazepines Scrn Negative U Cocaine Metab Screen Negative U Marijuana (THC) Screen Negative Quality Measures Quality Measures VTE prophylaxis (Lovenox 40 mg ) Advance care planning discussed with:: patient Assessment & Plan Assessment Current Active Medications: Generic Name Dose Route Start Last Admin Trade Name Freq PRN Reason Stop Dose Admin Acetaminophen 650 mg 11/12/24 13:54 Acetaminophen 325 Mg Tablet PO 12/12/24 13:53 Q6HR PRN pain, headache Aspirin 81 mg 11/13/24 09:00 11/14/24 08:45 Aspirin Ec 81 Mg Tabec PO 12/13/24 08:59 81 mg DAILY FLORENTINO Administration Atorvastatin Calcium 80 mg 11/12/24 21:00 11/13/24 20:16 Atorvastatin Calcium 20 Mg Tablet PO 12/12/24 20:59 80 mg HS FLORENTINO Administration Clopidogrel Bisulfate 75 mg 11/13/24 09:00 11/14/24 08:45 Clopidogrel Bisulfate 75 Mg Tablet PO 12/13/24 08:59 75 mg QDAY FLORENTINO Administration Dextrose 25 ml 11/12/24 13:52 Dextrose 50%-Water Inj 50 Ml Syringe IV 12/12/24 13:51 Q15MIN PRN BG 50-70 responsive npo pt Dextrose 50 ml 11/12/24 13:52 Dextrose 50%-Water Inj 50 Ml Syringe IV 12/12/24 13:51 Q15MIN PRN BG <50 OR BG <70 & pt unresponsive Enoxaparin Sodium 40 mg 11/12/24 13:45 11/14/24 08:44 Enoxaparin Sod Inj 40 Mg/0.4 Ml Syringe SC 11/26/24 13:44 40 mg QDAY FLORENTINO Administration Glucagon 1 mg 11/12/24 13:52 Glucagon Inj 1 Mg Vial IM Q15MIN PRN BG <70, and no IV access Hydralazine HCl 10 mg 11/12/24 13:51 Hydralazine Inj 20 Mg/Ml Vial IVP 12/12/24 13:50 Q8HR PRN SBP > 180 Insulin Human Lispro 0 unit 11/13/24 16:45 11/14/24 11:50 Insulin Lispro (Admelog) 1 Unit/0.01 Ml Unit SC 12/13/24 16:44 Not Given ACHS [facility] Protocol Lisinopril 20 mg 11/14/24 09:00 11/14/24 10:04 Lisinopril 20 Mg Tablet PO 12/14/24 08:59 20 mg DAILY FLORENTINO Administration Metoprolol Succinate 50 mg 11/13/24 14:00 11/14/24 08:45 Metoprolol Succinate Xl 25 Mg Tabcr PO 12/13/24 13:59 50 mg DAILY FLORENTINO Administration Ondansetron HCl 4 mg 11/12/24 12:22 Ondansetron Inj 2 Mg/Ml Inj 2 Ml IVP 12/12/24 12:21 Q4HR PRN NAUSEA OR VOMITING Pantoprazole Sodium 40 mg 11/12/24 15:30 11/14/24 08:45 Pantoprazole 40 Mg Tablet PO 12/12/24 15:29 40 mg DAILY FLORENTINO Administration Paroxetine HCl 30 mg 11/13/24 09:00 11/14/24 08:44 Paroxetine Hcl 10 Mg Tablet PO 12/13/24 08:59 30 mg DAILY FLORENTINO Administration Sennosides 1 tab 11/12/24 13:36 Senna Tablet PO 12/12/24 13:35 QDAY PRN constipation Protocol Plan #Left sided weakness # Left lower facial droop (chronic) LKAW 10 PM 11/11. Patient went to bed after reportedly feeling left facial weakness and left upper and lower extremity weakness. Overnight she woke up to use the restroom and fell to the floor without head strike twice and then presented to the emergency department, for stroke rule out, currently undergoing stroke rule out workup. She continues to have left facial droop with flattening of the nasolabial fold. Initial NIHSS score 1. TNK not given 2/2 outside of 4.5-hour window. CT head without contrast negative for acute hemorrhage, midline shift, mass effect. CTA negative for LVO. MRI stroke protocol negative for acute infarct, showed chronic white matter changes. Left facial weakness of upper motor neuron type has been there for some time according to the patient TTE LVEF 55% A1c 5.8, lipids WNL, TSH WNL, EtOH WNL EKG showed normal sinus rhythm with heart rate 94, QTc 448 PT: short-term rehab facility. Plan: - Continue aspirin 81 mg daily, Plavix 75 mg daily, high intensity statin - Patient cleared for discharge from a neurological standpoint # Hypertension Plan: - Management per primary team # GERD Plan: - Management per primary team?pantoprazole #non insulin T2DM Plan: - Management per primary team #CAD s/p stents Plan: - Management per primary team - continue ASA, Plavix #Dementia Brain MRI from September 2023 shows multi-infarct dementia AAOx3 on exam Plan: - Management per primary team?CTM #Depression Plan: ? Management per primary team - Continue home paroxetine 30 mg p.o. daily Plan discussed with Dr. Cayetano Santana, PGY1 Attending Provider Attestation/Addendum I personally have seen and examined the patient at the bedside and I agreed with the resident's findings, assessment and plan of care. Continue with aspirin Plavix and statin. Patient is waiting for placement
--- NOTE | 2024-11-14 14:52 | PD.RESPRO ---
Documentation for date of: 11/14/24 Subjective Subjective Interval history: Patient seen and examined at the bedside this morning. She reported that her left facial droop, upper and lower extremity weakness has been persistent. Her vitals were fairly stable, and saturating 97% on room air. CBC WNL, CMP revealed potassium of 3.4, bicarb 27, BUN/creatinine 5/0.6, magnesium 1.4. Recommended 40 mEq of KCl and 4 g magnesium sulfate. Telemetry monitoring Recommended to keep magnesium and potassium greater than 2 and 4 respectively at other time Continue with aspirin, clopidogrel and atorvastatin daily Continue with lisinopril 20 Mg daily, may increase the dose if normotension is not achieved TTE on 11/13/2024 revealed: Normal LV size and wall thickness. Estimated EF at 55%. The RV is normal in size and systolic function. Trace mitral and trace tricuspid regurgitation Orthostatic vitals Continue to monitor closely. Exam Vital Signs Temp Pulse Resp BP Pulse Ox O2 Del Method O2 Flow Rate 97.5 F 67 16 147/89 H 97 Room Air 1 11/14/24 12:00 11/14/24 12:00 11/14/24 12:00 11/14/24 12:00 11/14/24 12:00 11/14/24 12:00 11/14/24 12:00 Narrative Exam General: No acute distress, Alert and Oriented x 3 HEENT: Moist mucous membranes, oropharynx clear, facial asymmetry with left-sided facial droop Neck: Supple, No masses, No JVD CVS: S1S2 Regular rate and rhythm, No murmurs, rubs or gallops Lungs: Clear to auscultation with no accessory use, no wheeze no rhonchi Abd: Soft, NT/ND, +BS, no organomegaly Ext: No edema, warm and well perfused, muscle strength 4/5 in left upper and left lower extremity. Muscle strength 5/5 in right upper and right lower extremity. Sensation intact. Skin: No rash Psych: Appropriate mood and affect Objective Labs 11/14/24 05:19 11/14/24 05:19 Labs: Laboratory Results - last 24 hr 11/13/24 11/14/24 16:14 05:19 WBC 9.7 RBC 4.85 Hgb 13.8 Hct 40.8 MCV 84 MCH 28.5 MCHC 33.8 RDW Std Deviation 41.5 Plt Count 269 Neut % (Auto) 66 Lymph % (Auto) 20 [place] % (Auto) 9 Eos % (Auto) 4 Baso % (Auto) 1 Neut # (Auto) 6.4 Lymph # (Auto) 2.0 [place] # (Auto) 0.8 Eos # (Auto) 0.4 Baso # (Auto) 0.1 Immature Gran # (Auto) 0.04 H Absolute Nucleated RBC 0.00 Immature Gran % 0 Nucleated RBC % 0 Sodium 145 Potassium 3.4 Chloride 108 H Carbon Dioxide 27.2 Anion Gap 10 BUN < 5 L Creatinine 0.6 Estim Creat Clear Calc 76.0 eGFR > 60 BUN/Creatinine Ratio 8 L Glucose 110 H Calculated Osmolality 286 Calcium 8.7 Corrected Calcium 8.9 Phosphorus 2.8 Magnesium 1.4 L Total Bilirubin 0.9 AST 15 ALT < 7 L Alkaline Phosphatase 61 Total Protein 5.9 Albumin 3.7 Globulin 2.2 L Albumin/Globulin Ratio 1.7 Ur Collection Type Clean Catch Urine Color Yellow Urine Clarity Turbid A Urine pH 6.0 Ur Specific [place] 1.034 Urine Protein Negative Urine Glucose (UA) 4+ A Urine Ketones 1+ A Urine Blood Negative Urine Nitrite Negative Urine Bilirubin Negative Urine Urobilinogen (Auto) 3.0 Ur Leukocyte Esterase Positive Urine RBC 0 Urine WBC 21 H Ur Squamous Epith Cells 1 Urine Bacteria 2+ A Urine Opiates Screen Negative Urine Fentanyl Screen Negative Ur Barbiturates Screen Negative U Amphetamin/Meth Scrn Negative U Benzodiazepines Scrn Negative U Cocaine Metab Screen Negative U Marijuana (THC) Screen Negative Quality Measures Quality Measures VTE prophylaxis (Lovenox 40 mg ) Advance care planning discussed with:: patient Assessment & Plan Assessment Current Active Medications: Generic Name Dose Route Start Last Admin Trade Name Freq PRN Reason Stop Dose Admin Acetaminophen 650 mg 11/12/24 13:54 Acetaminophen 325 Mg Tablet PO 12/12/24 13:53 Q6HR PRN pain, headache Aspirin 81 mg 11/13/24 09:00 11/14/24 08:45 Aspirin Ec 81 Mg Tabec PO 12/13/24 08:59 81 mg DAILY FLORENTINO Administration Atorvastatin Calcium 80 mg 11/12/24 21:00 11/13/24 20:16 Atorvastatin Calcium 20 Mg Tablet PO 12/12/24 20:59 80 mg HS FLORENTINO Administration Clopidogrel Bisulfate 75 mg 11/13/24 09:00 11/14/24 08:45 Clopidogrel Bisulfate 75 Mg Tablet PO 12/13/24 08:59 75 mg QDAY FLORENTINO Administration Dextrose 25 ml 11/12/24 13:52 Dextrose 50%-Water Inj 50 Ml Syringe IV 12/12/24 13:51 Q15MIN PRN BG 50-70 responsive npo pt Dextrose 50 ml 11/12/24 13:52 Dextrose 50%-Water Inj 50 Ml Syringe IV 12/12/24 13:51 Q15MIN PRN BG <50 OR BG <70 & pt unresponsive Enoxaparin Sodium 40 mg 11/12/24 13:45 11/14/24 08:44 Enoxaparin Sod Inj 40 Mg/0.4 Ml Syringe SC 11/26/24 13:44 40 mg QDAY FLORENTINO Administration Glucagon 1 mg 11/12/24 13:52 Glucagon Inj 1 Mg Vial IM Q15MIN PRN BG <70, and no IV access Hydralazine HCl 10 mg 11/12/24 13:51 Hydralazine Inj 20 Mg/Ml Vial IVP 12/12/24 13:50 Q8HR PRN SBP > 180 Insulin Human Lispro 0 unit 11/13/24 16:45 11/14/24 11:50 Insulin Lispro (Admelog) 1 Unit/0.01 Ml Unit SC 12/13/24 16:44 Not Given ACHS ON LICENSE OF [facility] Protocol Lisinopril 20 mg 11/14/24 09:00 11/14/24 10:04 Lisinopril 20 Mg Tablet PO 12/14/24 08:59 20 mg DAILY FLORENTINO Administration Metoprolol Succinate 50 mg 11/13/24 14:00 11/14/24 08:45 Metoprolol Succinate Xl 25 Mg Tabcr PO 12/13/24 13:59 50 mg DAILY FLORENTINO Administration Ondansetron HCl 4 mg 11/12/24 12:22 Ondansetron Inj 2 Mg/Ml Inj 2 Ml IVP 12/12/24 12:21 Q4HR PRN NAUSEA OR VOMITING Pantoprazole Sodium 40 mg 11/12/24 15:30 11/14/24 08:45 Pantoprazole 40 Mg Tablet PO 12/12/24 15:29 40 mg DAILY FLORENTINO Administration Paroxetine HCl 30 mg 11/13/24 09:00 11/14/24 08:44 Paroxetine Hcl 10 Mg Tablet PO 12/13/24 08:59 30 mg DAILY FLORENTINO Administration Sennosides 1 tab 11/12/24 13:36 Senna Tablet PO 12/12/24 13:35 QDAY PRN constipation Protocol Plan The patient is a 69-year-old female with past medical history significant significant for CAD s/p PCI to distal RCA 95.0 x 20mm synergy stent on 02/01/2020 in [place], repeat catheterization on 11/20/2020 and Mayhowed patent RCA stent and mild disease in rest of the coronaries, TIA in November 2023, DM2, primary HTN, hypothyroidism, obesity, mild anxiety and depression who presented to ED on 11/12/2024 with chief complaint of left face and left upper and lower extremity weakness. The patient is currently being managed for ischemic stroke and getting further evaluation for dizziness associated with presyncope. #Acute Ischemic stroke Patient presented with left facial, and left upper and lower extremity weakness MRI brain was significant for 5 mm focus of restricted diffusion in the right basal ganglia and without definite, signal deficit on the ADC map CTA head and neck significant for CT head negative for any acute hemorrhage, mass effect or midline shift - Aspirin 81 Mg daily - Clopidogrel 75 Mg daily - Atorvastatin 80 Mg daily at night - Maintain euglycemia - Maintain normotension after 48 hours of acute stroke #Dizziness #Presyncope #Trace mitral regurgitation #Trace tricuspid regurgitation Patient reported developing dizziness on 11/12/2023 about 10:30 PM, associated with left facial and upper and lower extremity weakness, and slowly Had to lay down due to imbalance and also reported that she was not able to stand until help by her roommate. She did not lose her consciousness, or hit her head, no urinary or fecal incontinence, no tongue bite or any abnormal movement noticed by roommate. DDx: Cardiac causes with arrhythmias, versus neurological versus ENT problem Given the patient's extensive cardiac history, patient will require further cardiology workup and recommended to follow-up in office in 7 days.. EKG on 11/12/2024 was revealing sinus rhythm with mild ST segment depression on lead V1, V2 and V3 with heart rate of 94 TTE revealed: Negative bubble study. Normal LV size and wall thickness. Estimated EF at 55%. The RV is normal in size and systolic function. Trace mitral and trace tricuspid regurgitation -Telemetry monitoring -Orthostatic vitals -Maintain magnesium and potassium greater than 2 and 4 respectively at all the time #CAD s/p PCI to distal RCA #Hyperlipidemia - Continue with aspirin 81 Mg daily - Continue with atorvastatin 80 Mg daily #Primary hypertension Blood pressure currently well-controlled Continue with metoprolol succinate 25 Mg daily Diabetes mellitus type 2 Hypothyroidism Obesity Anxiety Depression - Management deferred to primary hospitalist team Thank you for cardiology consultation. We appreciate the opportunity to participate in this patient's care. Cardiology team will continue to follow-up on this patient. The patient's management plan was discussed with my attending physician MD Antony Campbell MD, PGY3 Attending Provider Attestation/Addendum I have personally seen and examined the patient separately on the above date of service and discussed the plan of care with the resident. I reviewed the resident Dr. Antony Batres consultation progress note and agree with the resident findings and plan in the note above and have also edited the documentation to reflect my findings and plan. Venkatesh Frias M.D. Interventional Cardiology
--- NOTE | 2024-11-14 15:28 | PC.SS ---
LIDIA spoke to Cristal with [employer], who stated she is working on a few things and she will work on auth for pt. Per Cristal she will contact Arleth with [employer] when auth is obtained. LIDIA spoke to Arleth to please call SS back when auth is obtained to set up transport.
--- NOTE | 2024-11-14 15:31 | PD.RESPRO ---
Documentation for date of: 11/14/24 Subjective Subjective Interval history: No acute events overnight patient stable Exam Vital Signs Temp Pulse Resp BP Pulse Ox O2 Del Method O2 Flow Rate 97.5 F 67 16 147/89 H 97 Room Air 1 11/14/24 12:00 11/14/24 12:00 11/14/24 12:00 11/14/24 12:00 11/14/24 12:00 11/14/24 12:00 11/14/24 12:00 24 vital signs reviewed within normal limits, stable SBP mildly elevated at 140s Narrative Exam General: No acute distress, Alert and Oriented x 3 HEENT: Moist mucous membranes, oropharynx clear, facial asymmetry with left-sided facial droop Neck: Supple, No masses, CVS: S1S2 Regular rate and rhythm, No murmurs, rubs or gallops Lungs: Clear to auscultation with no accessory use, no wheeze no rhonchi Abd: Soft, NT/ND, +BS, no organomegaly Ext: No edema, warm and well perfused, muscle strength 4/5 in left upper and left lower extremity. Muscle strength 5/5 in right upper and right lower extremity. Sensation intact. Skin: No rash Psych: Appropriate mood and affect Objective Labs 11/14/24 05:19 11/14/24 05:19 Labs: Laboratory Results - last 24 hr 11/13/24 11/14/24 16:14 05:19 WBC 9.7 RBC 4.85 Hgb 13.8 Hct 40.8 MCV 84 MCH 28.5 MCHC 33.8 RDW Std Deviation 41.5 Plt Count 269 Neut % (Auto) 66 Lymph % (Auto) 20 [place] % (Auto) 9 Eos % (Auto) 4 Baso % (Auto) 1 Neut # (Auto) 6.4 Lymph # (Auto) 2.0 [place] # (Auto) 0.8 Eos # (Auto) 0.4 Baso # (Auto) 0.1 Immature Gran # (Auto) 0.04 H Absolute Nucleated RBC 0.00 Immature Gran % 0 Nucleated RBC % 0 Sodium 145 Potassium 3.4 Chloride 108 H Carbon Dioxide 27.2 Anion Gap 10 BUN < 5 L Creatinine 0.6 Estim Creat Clear Calc 76.0 eGFR > 60 BUN/Creatinine Ratio 8 L Glucose 110 H Calculated Osmolality 286 Calcium 8.7 Corrected Calcium 8.9 Phosphorus 2.8 Magnesium 1.4 L Total Bilirubin 0.9 AST 15 ALT < 7 L Alkaline Phosphatase 61 Total Protein 5.9 Albumin 3.7 Globulin 2.2 L Albumin/Globulin Ratio 1.7 Ur Collection Type Clean Catch Urine Color Yellow Urine Clarity Turbid A Urine pH 6.0 Ur Specific [place] 1.034 Urine Protein Negative Urine Glucose (UA) 4+ A Urine Ketones 1+ A Urine Blood Negative Urine Nitrite Negative Urine Bilirubin Negative Urine Urobilinogen (Auto) 3.0 Ur Leukocyte Esterase Positive Urine RBC 0 Urine WBC 21 H Ur Squamous Epith Cells 1 Urine Bacteria 2+ A Urine Opiates Screen Negative Urine Fentanyl Screen Negative Ur Barbiturates Screen Negative U Amphetamin/Meth Scrn Negative U Benzodiazepines Scrn Negative U Cocaine Metab Screen Negative U Marijuana (THC) Screen Negative Quality Measures Quality Measures VTE prophylaxis (Lovenox 40 mg ) Assessment & Plan Assessment Current Active Medications: Generic Name Dose Route Start Last Admin Trade Name Freq PRN Reason Stop Dose Admin Acetaminophen 650 mg 11/12/24 13:54 Acetaminophen 325 Mg Tablet PO 12/12/24 13:53 Q6HR PRN pain, headache Aspirin 81 mg 11/13/24 09:00 11/14/24 08:45 Aspirin Ec 81 Mg Tabec PO 12/13/24 08:59 81 mg DAILY FLORENTINO Administration Atorvastatin Calcium 80 mg 11/12/24 21:00 11/13/24 20:16 Atorvastatin Calcium 20 Mg Tablet PO 12/12/24 20:59 80 mg HS FLORENTINO Administration Clopidogrel Bisulfate 75 mg 11/13/24 09:00 11/14/24 08:45 Clopidogrel Bisulfate 75 Mg Tablet PO 12/13/24 08:59 75 mg QDAY FLORENTINO Administration Dextrose 25 ml 11/12/24 13:52 Dextrose 50%-Water Inj 50 Ml Syringe IV 12/12/24 13:51 Q15MIN PRN BG 50-70 responsive npo pt Dextrose 50 ml 11/12/24 13:52 Dextrose 50%-Water Inj 50 Ml Syringe IV 12/12/24 13:51 Q15MIN PRN BG <50 OR BG <70 & pt unresponsive Enoxaparin Sodium 40 mg 11/12/24 13:45 11/14/24 08:44 Enoxaparin Sod Inj 40 Mg/0.4 Ml Syringe SC 11/26/24 13:44 40 mg QDAY FLORENTINO Administration Glucagon 1 mg 11/12/24 13:52 Glucagon Inj 1 Mg Vial IM Q15MIN PRN BG <70, and no IV access Hydralazine HCl 10 mg 11/12/24 13:51 Hydralazine Inj 20 Mg/Ml Vial IVP 12/12/24 13:50 Q8HR PRN SBP > 180 Insulin Human Lispro 0 unit 11/13/24 16:45 11/14/24 11:50 Insulin Lispro (Admelog) 1 Unit/0.01 Ml Unit SC 12/13/24 16:44 Not Given ACHS FLORENTINO Protocol Lisinopril 20 mg 11/14/24 09:00 11/14/24 10:04 Lisinopril 20 Mg Tablet PO 12/14/24 08:59 20 mg DAILY FLORENTINO Administration Metoprolol Succinate 50 mg 11/13/24 14:00 11/14/24 08:45 Metoprolol Succinate Xl 25 Mg Tabcr PO 12/13/24 13:59 50 mg DAILY FLORENTINO Administration Ondansetron HCl 4 mg 11/12/24 12:22 Ondansetron Inj 2 Mg/Ml Inj 2 Ml IVP 12/12/24 12:21 Q4HR PRN NAUSEA OR VOMITING Pantoprazole Sodium 40 mg 11/12/24 15:30 11/14/24 08:45 Pantoprazole 40 Mg Tablet PO 12/12/24 15:29 40 mg DAILY FLORENTINO Administration Paroxetine HCl 30 mg 11/13/24 09:00 11/14/24 08:44 Paroxetine Hcl 10 Mg Tablet PO 12/13/24 08:59 30 mg DAILY FLORENTINO Administration Sennosides 1 tab 11/12/24 13:36 Senna Tablet PO 12/12/24 13:35 QDAY PRN constipation Protocol
--- NOTE | 2024-11-14 15:49 | PC.SS ---
SS spoke to pt in regards to transport, pt stated her son Lee can take her. Packet is prepared. Pending auth for [employer].
--- NOTE | 2024-11-14 16:00 | PC.SS ---
Addendum entered by Hollie Benites 11/14/24 16:09: PAS[facility] sent via [employer] with DC orders to Ar[facility] [phone] Original Note: SS spoke to Arle[facility] who stated she has auth. SS updated RN, Paulina. SS spoke to pt son Lee who stated he can be here by 6pm to transport the pt to [facility].
--- NOTE | 2024-11-14 16:03 | ESDS_ITS ---
<Statement entered by Cooper Goodwin MD - 11/14/24 18:06> Patient seen and examined at bedside, no acute overnight events. I discussed and supervised with the information technology internship physician who took care of this patient. I personally saw and examined the patient. I agree with most of the assessment and plan. Plan of care discussed with attending Dr. Dariana Goodwin MD PGY-2 Planned Discharge Date 11/14/24 DS: Providers Provider Date of admission: 11/12/24 13:36 Primary care physician: Good Juarez MD Admitting Provider: Eduin Westbrook MD Attending Provider on Admission: Eduin Westbrook MD Consults: 11/12/24 12:22 Consult to Neurology / Tele-Neurology Routine Comment: Consulting Provider: [facility] 11/12/24 13:42 Referral Speech Therapy Routine Comment: 11/12/24 13:49 Consult to Neurology / Tele-Neurology Routine Comment: stroke r/o Consulting Provider: Donavan Monteiro Referral Physical Therapy Stat Comment: Physician Instructions: Instructions: stroke 11/13/24 08:45 Referral - [employer] Testing Director Routine Comment: adrián Vasquez Attending Provider on DC: Dr. Westbrook Discharging Provider: Hien Messina, RESIDENT DS: Diagnosis Problem List Completed Was Problem List Reviewed/Reconciled?: Yes Hospital Course Hospital Course Hospital course: Hospital Course Ms. Ericka Gaming is a 69-year-old woman with past medical history significant for TIA in November 2023, CAD status post stent (on ASA, Plavix) HTN, HLD, T2DM not on on insulin, depression and a chronic history of dizziness who presented to the emergent department today for left left face and left upper extremity weakness, and admitted for stroke rule out found to have right lacunar stroke. On exam she has notable flattening of the left nasolabial fold. CT head without contrast negative for acute hemorrhage, midline shift, mass effect. CTA negative for LVO. MRI stroke protocol negative for acute infarct, showed chronic white matter changes. TTE LVEF 55% A1c 5.8, lipids WNL, TSH WNL, EtOH WNL. EKG showed normal sinus rhythm with heart rate 94, QTc 448. Telemetry neuroconsulted as well as Dr. Monteiro, recommended continue aspirin 81 mg daily, Plavix 75 mg daily, high intensity statin. Physical therapy consulted recommending dispo to SNF, for continued physical therapy. Patient stable and medically cleared for discharge Diagnoses Diabetes mellitus type 2 Hypothyroidism Obesity Anxiety Depression Primary hypertension CAD s/p PCI to distal RCA Hyperlipidemia Dizziness Presyncope Trace mitral regurgitation Trace tricuspid regurgitation Acute Ischemic stroke Discharge instructions You have been started on the following medications: -aspirin 81mg daily -atorvastatin 80mg at bedtime -Plavix 75mg once daily Your FERROUS SULFATE has been changed to once every other day Please continue taking all other meds as previously prescribed. Please follow up with your primary doctor within 7-10 days. Please follow up with neurologist Dr. Monteiro within 2 weeks. Return to the ED if you develop new or worsening symptoms. Case discussed with my senior resident Dr. Goodwin Case discussed with my attending Dr. Dariana Messina MD PGY-1 Time Spent with Patient Time attestation: Total time spent providing and/or coordinating discharge services:36 Time spent: Greater than 30 minutes Quality: Stroke Pt Provided Written Stroke Discharge Instructions: No Exam Vital Signs Temp Pulse Resp BP Pulse Ox O2 Del Method O2 Flow Rate 97.5 F 67 16 147/89 H 97 Room Air 1 11/14/24 12:00 11/14/24 12:11/14/24 12:11/14/24 12:00 11/14/24 12:00 11/14/24 12:11/14/24 12:00 Narrative Exam GENERAL APPEARANCE: AxOx4 female in no acute distress. Saturating well on room air. HEENT: NC, AT. MMM. EOMI, clear conjunctiva, oropharynx clear. Mild left facial droop. NECK: Supple without lymphadenopathy. No stiffness or restricted ROM. HEART: Regular rate and regular rhythm, normal S1/S2, no m/r/g LUNGS: CTAB, moving air well. No crackles or wheezes are heard. ABDOMEN: Soft, nontender, nondistended with good bowel sounds heard. BACK: No CVAT, Some scolosis type deformity of back EXTREMITIES: Power in left upper extremity 4/ 5. Power in right upper extremity 5/5. Power in both lower extremities 5/5 NEUROLOGICAL: Grossly nonfocal. Alert and oriented, moving all 4 extremities. CN V: Facial sensation to light touch intact bilaterally at the forehead, cheeks, and jaw line CN VII: Left lower facial droop appreciated on smile Skin: Warm and dry without any rash. Psych: Appropriate mood and affect Discharge Plan Plan Patient Disposition: Xfer Skilled Nsg Fac (SNF) Patient condition on transfer: Stable Care Plan Goals: You have been started on the following medications: -aspirin 81mg daily -atorvastatin 80mg at bedtime -Plavix 75mg once daily Your FERROUS SULFATE has been changed to once every other day Please continue taking all other meds as previously prescribed. Please follow up with your primary doctor within 7-10 days. Please follow up with neurologist Dr. Monteiro within 2 weeks. Return to the ED if you develop new or worsening symptoms. Prescriptions/Referrals Prescriptions/Med Rec: New aspirin 81 mg Tablet,Delayed Release (Dr/Ec) 81 mg PO DAILY Qty: 90 0RF ferrous sulfate 325 mg (65 mg iron) tablet 325 mg PO .qod Qty: 90 0RF atorvastatin 80 mg tablet 80 mg PO QPM Qty: 30 0RF clopidogrel [Plavix] 75 mg tablet 75 mg PO QDAY Qty: 30 0RF Continued clopidogrel [Plavix] 75 mg Tablet 75 mg PO QDAY Qty: 30 0RF nitroglycerin 0.4 mg tablet, sublingual 0.4 mg BUCCAL [id number] PRN (Reason: chest pain) Qty: 100 0RF Rx Instructions: Please seek immediate medical attention if no alleviation of chest pain. atorvastatin 80 mg tablet 80 mg PO HS 30 Days Qty: 30 3RF metformin 1,000 mg tablet 1,000 mg PO BID Patient Comments: TAKE 1 TABLET BY MOUTH TWICE A DAY WITH BREAKFAST AND DINNER paroxetine HCl 30 mg tablet 30 mg PO DAILY Patient Comments: TAKE 1 TABLET BY MOUTH EVERY DAY lisinopril 20 mg tablet 20 mg PO DAILY Patient Comments: TAKE 1 TABLET BY MOUTH EVERY DAY metoprolol succinate 50 mg tablet extended release 24 hr 50 mg PO DAILY Patient Comments: TAKE 1 TABLET BY MOUTH EVERY DAY Jardiance 10 mg tablet 10 mg PO QAM Discontinued ferrous sulfate 325 mg (65 mg iron) Tablet 325 mg PO BID Referrals: Good Juarez MD [Primary Care Provider] - Donavan Monteiro MD [Physician] - Patient/Caregiver Discharge Instructions Discharge Activity: as per physical therapy Education Materials: Stroke: Resources and Support, Stroke: Self-Care, Anatomy of the Brain, Discharge Instructions for Stroke, Stroke Regaining Movement, Arm Care After a Stroke Print Language: Chinese Stand Alone Forms: Milady Award Info., Patient Portal Info Letter Discharge Order Discharge Orders: Discharge (Routine); Ordered 11/14/24 Ordered By: Cooper Goodwin Quality Discharge Quality Measures VTE prophylaxis and stroke Statin ordered >75 y/o:moderate or high intensity dose on DC: yes Statin ordered <75 y/o: high intensity dose on DC: n/a Statin not ordered due to:: not indicated (pt will be discharged on statin ) Anticoagulation ordered for A-fib or flutter (current or hx): ordered Antithro mbotic ordered on DC: ordered MD Attestestation Attestation I attest that I was physically present for the evaluation, physical examination, lab and imaging review of the patient with the residents. I discussed the case with the residents and agree with the findings and plans of care as documented above. Eduin Westbrook MD
== END 2024-11-14 18:45 | disposition skilled nursing facility (03) | DRG 65 ==
LOC: SERX 13:19 → SERHOLD 14:17 → S2NX 17:13 → S3SX 11-13 13:32
PROVIDERS: Admitting Provider Student in an Organized Health Care Education/Training Program; Emergency Provider Family Medicine; PCP Internal Medicine; Visit Provider Student in an Organized Health Care Education/Training Program
DX: I63.9 Cerebral infarction, unspecified (principal); E87.0 Hyperosmolality and hypernatremia; G81.94 Hemiplegia, unspecified affecting left nondominant side; I10 Essential (primary) hypertension; K21.9 Gastro-esophageal reflux disease without esophagitis; E11.9 Type 2 diabetes mellitus without complications; I25.10 Atherosclerotic heart disease of native coronary artery without angina pectoris; F32.A Depression, unspecified; R29.810 Facial weakness; E87.8 Other disorders of electrolyte and fluid balance, not elsewhere classified; D72.829 Elevated white blood cell count, unspecified; K45.8 Other specified abdominal hernia without obstruction or gangrene; E03.9 Hypothyroidism, unspecified; E78.5 Hyperlipidemia, unspecified; Z95.5 Presence of coronary angioplasty implant and graft; E66.9 Obesity, unspecified; I69.318 Other symptoms and signs involving cognitive functions following cerebral infarction; K14.8 Other diseases of tongue; Z68.28 Body mass index [BMI] 28.0-28.9, adult; R29.701 NIHSS score 1; W18.30XA Fall on same level, unspecified, initial encounter; Z79.02 Long term (current) use of antithrombotics/antiplatelets; Z79.82 Long term (current) use of aspirin; Z79.84 Long term (current) use of oral hypoglycemic drugs; Z79.899 Other long term (current) drug therapy
CPT/HCPCS: 36415; 70450; 70496; 70498; 70553; 71045; 80053; 80061; 80307; 80320; 81001; 83036; 83735; 83880; 84100; 84443; 84484; 85025; 85610; 85730; 87086; 92526; 92610; 93225; 93306; 96360; 96361; 97162; A4649; J1650; J1815; J3475; J7030; J7120; Q9967; A9270; G0480